=== PATIENT | female | born 1940 | race Caucasian/White ===

== ENCOUNTER 2019-03-26 11:38 | Inpatient (IN) | payer MEDICARE ==
[2019-03-26] MEDS ORDERED: Sodium Chloride 0.9% 10 ML Syringe FLUSH PRN (12:05)
[2019-03-26] MEDS ORDERED: Diltiazem 25 MG/5 ML SDV IVPUSH ONE (12:06)
[2019-03-26] MEDS ORDERED: Sodium Chloride 0.9% 1,000 ML IV SCH ×2 (12:15→15:24)
--- NOTE | 2019-03-26 12:38 | EDM.PDOC ---
ED HPI GENERAL MEDICAL PROBLEM - General Chief Complaint: Cardiovascular Problem Stated Complaint: NUMBNESS RIGHT HAND VIA NORTH Time Seen by Provider: 03/26/19 12:10 Source of Information: Reports: EMS History Limitations: Reports: Language Barrier, Other. Denies: No Limitations - History of Present Illness INITIAL COMMENTS - FREE TEXT/NARRATIVE: Alert very pleasant 78-year-old female who presents via EMS this morning due to abrupt onset of right arm numbness and tingling the patient denies weakness. Patient's nose with times a day of which is occurred she was getting ready to go to [facility]. 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 Her daughter was called by EMS regarding her ER visit. Patient states that she had a resolution of her right arm numbness and tingling at the time of ER presentation. Patient's has limited history due to language and cultural barriers patient is able to speak but it's very forced. Patient states she had a stroke in 2011 or unsure of residual deficits. Patient has no history of atrial fibrillation in our medical record system and patient did not say she had a history of atrial fibrillation. Upon further questioning patient states she does have a history of an irregular heartbeat which she's had for quite some time. Patient is supposed to be on metoprolol 50 mg for rate control and hypertension. Patient discontinue taking her Toprol in the hopes that it TENT would improve and control her blood pressure and heart rate. Patient does not recall how long ago she stopped taking metoprolol. Patient continues to use her lisinopril/chlorothiazide for blood pressure control. Patient denies any chest pain, shortness of breath URI symptoms. She denies any urinary symptoms do not know if she's had a history of urinary tract infections or pneumonia in the past. Patient is anxious about getting her routine care completed including mammogram, Pneumovax vaccination and other routine care drooling be done on outpatient basis. 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 - Related Data Allergies Allergy/AdvReac Type Severity Reaction Status Date / Time No Known Allergies Allergy Verified 03/26/19 11:52 Home Meds: Home Meds Hydrochlorothiazide/Lisinopril [Lisinopril-HCTZ 20-25 MG] 1 tab PO DAILY [History] Metoprolol Succinate 50 mg PO DAILY 03/26/19 [History] Past Medical History HEENT History: Reports: Hard of Hearing, Impaired Vision Other HEENT History: hard of hearing Cardiovascular History: Reports: Hypertension Other Cardiovascular History: hypotension Other Respiratory History: SOB with humidity 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 5 ribs broken Neurological History: Reports: CVA - Past Surgical History Cardiovascular Surgical History: Reports: None - History Comment History Comment: Her daughter was called by nursing staff: patient is noncompliant with medical treatments and follow-up care. Daughter states known history of A. fib and hypertension. Daughter believes the patient was very concerned today, as seeking care and calling ambulance is not typical behavior. Daughter believes patient will be more open to medical care and treatment. Social & Family History - Family History Family Medical History: Noncontributory Other Family History: Limited due to language and culture barriers - Tobacco Use Smoking Status *Q: Never Smoker - Caffeine Use Caffeine Use: Reports: Coffee - Recreational Drug Use Recreational Drug Use: No - Living Situation & Occupation Living situation: Reports: Single Occupation: Unemployed Social History Comment: Living in home alone with dog ED ROS GENERAL - Review of Systems Review Of Systems: ROS reveals no pertinent complaints other than HPI. Free Text/Narrative/Comment: Limited due to lagnuage and cultural barriers ED EXAM, GENERAL - Physical Exam Exam: See Below Exam Limited By: Language Barrier General Appearance: Alert, Anxious, Thin. No: Lethargic, Obtunded, Mild Distress Eye Exam: Bilateral Eye: Other (Normal EOM and visual tracking) Throat/Mouth: Normal Inspection, Normal Lips, Normal Teeth, Normal Gums, Normal Oropharynx, Normal Voice, No Airway Compromise Head: No: Facial Swelling Respiratory/Chest: No Respiratory Distress, Lungs Clear, Normal Breath Sounds, No Accessory Muscle Use, Chest Non-Tender. No: Respiratory Distress, Crackles, Wheezing Cardiovascular: Normal Peripheral Pulses, No Edema, No JVD, Tachycardia, Irregularly Irregular GI/Abdominal: Normal Bowel Sounds, Soft, Non-Tender, No Organomegaly (Female) Exam: Deferred Rectal (Female) Exam: Deferred Extremities: Normal Inspection, Normal Range of Motion, No Pedal Edema, Normal Capillary Refill. No: Joint Swelling, Leg Pain Neurological: Alert, CN II-XII Intact, Normal Cognition Psychiatric: Normal Mood, Other (very rushed forced speach) Skin Exam: Warm, Dry Lymphatic: No Adenopathy EKG INTERPRETATION EKG Date: 03/26/19 Time: 12:15 Rhythm: A-Fib Rate (Beats/Min): 127 P-Wave: Variable QT: Prolonged Comparison: NA - No Prior EKG EKG Interpretation Comments: A fib mónica RVR HR 127 Course - Vital Signs Last Recorded V/S: Last Vital Signs Temp 37 C 03/26/19 11:50 Pulse 145 H 03/26/19 11:50 Resp 15 03/26/19 12:24 BP 171/87 H 03/26/19 12:24 Pulse Ox 96 03/26/19 12:24 - Orders/Labs/Meds Orders: Active Orders 24 hr Category Date Time Status Cardiac Monitoring [RC] .As Directed Care 03/26/19 12:16 Active EKG Documentation Completion [RC] ASDIRECTED Care 03/26/19 12:06 Active Peripheral IV Care [RC] . DIRECTED Care 03/26/19 12:06 Active Diltiazem 125 mg Med 03/26/19 12:15 Active Dextrose 5% in Water 100 ml IV TITRATE Sodium Chloride 0.9% [Normal Saline] 1,000 ml Med 03/26/19 12:15 Active IV ASDIRECTED Sodium Chloride 0.9% [Saline Flush] Med 03/26/19 12:05 Active 10 ml FLUSH ASDIRECTED PRN Peripheral IV Insertion Adult [OM.PC] Stat Oth 03/26/19 12:05 Ordered EKG 12 Lead [EK] Stat Ther 03/26/19 12:05 Ordered Medication Orders Diltiazem HCl 125 mg/ Dextrose (/Water) 125 mls @ 5 mls/hr IV TITRATE MELANIE; Protocol Last Admin: 03/26/19 13:28 Dose: 5 mg/hr, 5 mls/hr Sodium Chloride (Normal Saline) 1,000 mls @ 500 mls/hr IV ASDIRECTED MELANIE Last Admin: 03/26/19 12:16 Dose: 500 mls/hr Sodium Chloride (Saline Flush) 10 ml FLUSH ASDIRECTED PRN PRN Reason: Keep Vein Open Last Admin: 03/26/19 12:23 Dose: 10 ml Labs: Laboratory Tests 03/26/19 03/26/19 03/26/19 Range/Units 12:19 12:19 12:48 WBC 9.8 (4.5-11.0) K/uL RBC 4.45 (3.30-5.50) M/uL Hgb 12.3 (12.0-15.0) g/dL Hct 38.3 (36.0-48.0) % MCV 86 (80-98) fL MCH 28 (27-31) pg MCHC 32 (32-36) % Plt Count 214 (150-400) K/uL Neut % (Auto) 76 H (36-66) % Lymph % (Auto) 16 L (24-44) % [place] % (Auto) 7 H (2-6) % Eos % (Auto) 1 L (2-4) % Baso % (Auto) 0 (0-1) % Sodium 140 (140-148) mmol/L Potassium 3.7 (3.6-5.2) mmol/L Chloride 102 (100-108) mmol/L Carbon Dioxide 28 (21-32) mmol/L Anion Gap 10.0 (5.0-14.0) mmol/L BUN 20 H (7-18) mg/dL Creatinine 1.6 H (0.6-1.0) mg/dL Est Cr Clr Drug Dosing 24.74 mL/min Estimated GFR (MDRD) 31 L (>60) Glucose 109 H (74-106) mg/dL Calcium 9.4 (8.5-10.1) mg/dL Magnesium 2.0 (1.8-2.4) mg/dL Total Bilirubin 0.5 D (0.2-1.0) mg/dL AST 22 (15-37) U/L ALT 17 (12-78) U/L Alkaline Phosphatase 85 (46-116) U/L Troponin I 0.081 H* (0.000-0.056) ng/mL NT-Pro-B Natriuret Pep 4323 H (5-450) pg/mL Total Protein 7.8 (6.4-8.2) g/dL Albumin 3.2 L (3.4-5.0) g/dL Globulin 4.6 H (2.3-3.5) g/dL Albumin/Globulin Ratio 0.7 L (1.2-2.2) Urine Color Yellow Urine Appearance Clear Urine pH 6.0 (4.5-8.0) Ur Specific [place] 1.010 (1.008-1.030) Urine Protein Negative (NEGATIVE) mg/dL Urine Glucose (UA) Normal (NEGATIVE) mg/dL Urine Ketones Negative (NEGATIVE) mg/dL Urine Occult Blood Negative (NEGATIVE) Urine Nitrite Negative (NEGATIVE) Urine Bilirubin Negative (NEGATIVE) Urine Urobilinogen Normal (NORMAL) mg/dL Ur Leukocyte Esterase Moderate (NEGATIVE) Urine RBC Not seen (0-5) Urine WBC 5-10 H (0-5) Ur Epithelial Cells Moderate Amorphous Sediment Not seen Urine Bacteria Not seen Urine Mucus Few Meds: Medications Generic Name Dose Route Start Last Admin Trade Name Freq PRN Reason Stop Dose Admin Diltiazem HCl 125 mg/ Dextrose 125 mls @ 5 mls/hr 03/26/19 12:15 03/26/19 13: 28 /Water IV 5 mg/hr TITRATE MELANIE 5 mls/hr Administration Protocol 5 MG/HR Sodium Chloride 1,000 mls @ 500 mls/hr 03/26/19 12:15 03/26/19 12:16 Normal Saline IV 500 mls/hr ASDIRECTED MELANIE Administration Sodium Chloride 10 ml 03/26/19 12:05 03/26/19 12:23 Saline Flush FLUSH 10 ml ASDIRECTED PRN Administration Keep Vein Open Discontinued Medications Generic Name Dose Route Start Last Admin Trade Name Freq PRN Reason Stop Dose Admin Diltiazem HCl 20 mg 03/26/19 12:06 03/26/19 12:14 Diltiazem IVPUSH 03/26/19 12:07 20 mg ONETIME ONE Administration - Re-Assessments/Exams Free Text/Narrative Re-Assessment/Exam: 03/26/19 13:04 CXR PA/LAT Reviewed: No acute infiltrate, fluid overload or density noted. Worsening cardiomegaly. COMPARISON: May 2016: Cardiomegaly noted but appears worse. Laboratory studies reviewed: Bump in Trop noted likely due to heart strain with long standing poor control afib (due to noncompliance with treatments). BNP elevated no comparison available again likely due to heart strain with long standing poor control a fib (due to noncompliance with treatments). Discussed admission with patient and daughter whom are agreeable. HR improved to 70/80s after Cardizem bolus, drip on hold. BP improved. Patient is fairly asymptomatic. Patient will be on a monitor pending admission or transfer for uncontrolled A. fib with RVR with bump in troponin and elevated BNP unable to compare to baseline. No signs of infection noted on urine or chest x-ray to explain uncontrolled A. fib. Patient has a history of noncompliance with treatment and medications. Patient seems more amenable to treatment options with the known risk of A. fib causing a stroke which he does not want another store. Patient does not appear to be on an anticoagulants. Patient's does take aspirin. Unsure if patient's benefit versus risk would be amenable to a note for warfarin due to noncompliance. 03/26/19 13:07 Free Text/Narrative Re-Assessment/Exam: Daughter is available at bedside. After the daughter regarding laboratory studies, chest x-ray, EKG and plan for admission. Nursing staff spoke with the inpatient nursing staff regarding bed availability. There is a bed available for this patient to be admitted to improve compliance offer treatment and set up outpatient care. I will speak to the hospitalist service regarding 03/26/19 13:27 Departure - Departure Time of Disposition: 13:37 (Per Dr Lopes) Disposition: Refer to Observation Condition: Fair Clinical Impression: Hypertensive heart disease, Uncontrolled hypertension, Atrial fibrillation with RVR Referrals: PCP,None [Primary Care Provider] - Forms: ED Department Discharge - Problem List & Annotations (1) Uncontrolled hypertension SNOMED Code(s): 99194244, 90779305 Code(s): I10 - ESSENTIAL (PRIMARY) HYPERTENSION Status: Acute Priority: Medium Current Visit: Yes (2) Atrial fibrillation with RVR SNOMED Code(s): 086526909856336 Code(s): I48.91 - UNSPECIFIED ATRIAL FIBRILLATION Status: Acute Current Visit: Yes (3) A-fib SNOMED Code(s): 06906002 Code(s): I48.91 - UNSPECIFIED ATRIAL FIBRILLATION Status: Chronic Current Visit: Yes Qualifiers: Atrial fibrillation type: unspecified Qualified Code(s): I48.91 - Unspecified atrial fibrillation (4) TIA (transient ischemic attack) SNOMED Code(s): 165659032 Code(s): G45.9 - TRANSIENT CEREBRAL ISCHEMIC ATTACK, UNSPECIFIED Status: Acute Current Visit: Yes Annotation/Comment:: Probable right arm sensory loss 9am to 12 noon today. H/O CVA - Problem List Review Problem List Initiated/Reviewed/Updated: Yes - My Orders Last 24 Hours: My Active Orders 03/26/19 12:05 Sodium Chloride 0.9% [Saline Flush] 10 ml FLUSH ASDIRECTED PRN Peripheral IV Insertion Adult [OM.PC] Stat EKG 12 Lead [EK] Stat 03/26/19 12:06 EKG Documentation Completion [RC] ASDIRECTED Peripheral IV Care [RC] . DIRECTED 03/26/19 12:15 Diltiazem 125 mg Dextrose 5% in Water 100 ml IV TITRATE Sodium Chloride 0.9% [Normal Saline] 1,000 ml IV ASDIRECTED 03/26/19 12:16 Cardiac Monitoring [RC] .As Directed - Assessment/Plan Last 24 Hours: My Active Orders 03/26/19 12:05 Sodium Chloride 0.9% [Saline Flush] 10 ml FLUSH ASDIRECTED PRN Peripheral IV Insertion Adult [OM.PC] Stat EKG 12 Lead [EK] Stat 03/26/19 12:06 EKG Documentation Completion [RC] ASDIRECTED Peripheral IV Care [RC] . DIRECTED 03/26/19 12:15 Diltiazem 125 mg Dextrose 5% in Water 100 ml IV TITRATE Sodium Chloride 0.9% [Normal Saline] 1,000 ml IV ASDIRECTED 03/26/19 12:16 Cardiac Monitoring [RC] .As Directed
--- NOTE | 2019-03-26 13:14 | CRLCR ---
INDICATION: Atrial fibrillation. Concern for CVA. COMPARISON: 06/04/2016 portable chest radiograph. FINDINGS/IMPRESSION: Mild cardiomegaly. Upper normal pulmonary vasculature. No focal lung consolidation or pleural effusions. No acute osseous findings Dictated by Devonte Dalton MD @ 03/26/2019 1:13:27 PM Dictated by: Devonte Dalton MD @ 03/26/2019 13:13:47 (Electronically Signed)
--- NOTE | 2019-03-26 14:42 | PCM.HP ---
H&P History of Present Illness - General Date of Service: 03/26/19 Admit Problem/Dx: Admission Diagnosis/Problem Admission Diagnosis/Problem Atrial fibrillation with rapid ventricular response Source of Information: Patient, Provider History Limitations: Reports: No Limitations - History of Present Illness Initial Comments - Free Text/Narative: CC: My arm felt frozen Demetria presented to the emergency room today with right arm numbness and tingling. She reports onset of initially tingling followed by numbness and the sensation that her arm was wet or frozen. There was no significant change in activity that preceded onset of the symptoms. Symptoms completely resolved within 3 hours. She has had mild episodes like this in the past, usually while driving. She has never had any symptoms that have lasted quite this long or been quite this intense. She did not complain of a headache, dizziness, blurry vision, no weakness, difficulty with speech or weakness in either leg. She does not currently report palpitations but reports several months ago she had episodes of weakness/feeling frozen. She has not had an chest pain. She does not feel short of breath and does not get short of breath with activity. She has not had any fevers. Workup in the emergency room revealed atrial fibrillation with rapid ventricular response. Heart rate has responded to diltiazem but she remains in atrial fibrillation. Blood pressure significantly elevated with systolic pressures around 200. Troponin is very mildly elevated at 0.08. She'll be admitted for management of atrial fibrillation and a blood pressure control. 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 5 ribs broken Neurological History: Reports: CVA - Past Surgical History Cardiovascular Surgical History: Reports: None - History Comment History Comment: Her daughter was called by nursing staff: patient is noncompliant with medical treatments and follow-up care. Daughter states known history of A. fib and hypertension. Daughter believes the patient was very concerned today, as seeking care and calling ambulance is not typical behavior. Daughter believes patient will be more open to medical care and treatment. Social & Family History - Family History Family Medical History: Noncontributory Other Family History: Limited due to language and culture barriers - Tobacco Use Smoking Status *Q: Never Smoker - Caffeine Use Caffeine Use: Reports: Coffee - Alcohol Use Alcohol Use History: No - Recreational Drug Use Recreational Drug Use: No - Living Situation & Occupation Living situation: Reports: Single Occupation: Unemployed H&P Review of Systems - Review of Systems: Review Of Systems: See Below Free Text/Narrative: A complete 12 point review of systems was obtained. Pertinent positives and negatives are noted in the history of present illness. All other systems were reviewed and were negative except as noted. Exam - Exam Exam: See Below - Vital Signs Vital Signs: Last Vital Signs Temp 37 C 03/26/19 11:50 Pulse 103 H 03/26/19 13:46 Resp 15 03/26/19 13:46 BP 175/107 H 03/26/19 13:46 Pulse Ox 94 L 03/26/19 13:46 Weight: 58.967 kg - Exam Quality Assessment: No: Supplemental Oxygen General: Alert, Oriented, Cooperative. No: Mild Distress HEENT: Conjunctiva Clear, Mucosa Moist & [place]. No: Scleral Icterus Neck: Supple, Trachea Midline. No: Lymphadenopathy Lungs: Clear to Auscultation, Normal Respiratory Effort Cardiovascular: Irregular Rhythm, Tachycardia. No: Systolic Murmur GI/Abdominal Exam: Normal Bowel Sounds, Soft, Non-Tender, No Distention Back Exam: Normal Inspection, Full Range of Motion Extremities: No Pedal Edema. No: Increased Warmth Peripheral Pulses: 2+: Dorsalis Pedis (L), Dorsalis Pedis (R) Skin: Warm, Dry Neuro Extensive - Mental Status: Alert, Oriented x3, Nl Response to Commands Neuro Extensive - Motor, Sensory, Reflexes: No: Dysarthria, Abnormal Motor, Tremor Psychiatric: Alert, Normal Affect - Patient Data Lab Results Last 24 hrs: Laboratory Results - last 24 hr 03/26/19 03/26/19 03/26/19 Range/Units 12:19 12:19 12:48 WBC 9.8 (4.5-11.0) K/uL RBC 4.45 (3.30-5.50) M/uL Hgb 12.3 (12.0-15.0) g/dL Hct 38.3 (36.0-48.0) % MCV 86 (80-98) fL MCH 28 (27-31) pg MCHC 32 (32-36) % Plt Count 214 (150-400) K/uL Neut % (Auto) 76 H (36-66) % Lymph % (Auto) 16 L (24-44) % [place] % (Auto) 7 H (2-6) % Eos % (Auto) 1 L (2-4) % Baso % (Auto) 0 (0-1) % Sodium 140 (140-148) mmol/L Potassium 3.7 (3.6-5.2) mmol/L Chloride 102 (100-108) mmol/L Carbon Dioxide 28 (21-32) mmol/L Anion Gap 10.0 (5.0-14.0) mmol/L BUN 20 H (7-18) mg/dL Creatinine 1.6 H (0.6-1.0) mg/dL Est Cr Clr Drug Dosing 24.74 mL/min Estimated GFR (MDRD) 31 L (>60) Glucose 109 H (74-106) mg/dL Calcium 9.4 (8.5-10.1) mg/dL Magnesium 2.0 (1.8-2.4) mg/dL Total Bilirubin 0.5 D (0.2-1.0) mg/dL AST 22 (15-37) U/L ALT 17 (12-78) U/L Alkaline Phosphatase 85 (46-116) U/L Troponin I 0.081 H* (0.000-0.056) ng/mL NT-Pro-B Natriuret Pep 4323 H (5-450) pg/mL Total Protein 7.8 (6.4-8.2) g/dL Albumin 3.2 L (3.4-5.0) g/dL Globulin 4.6 H (2.3-3.5) g/dL Albumin/Globulin Ratio 0.7 L (1.2-2.2) Urine Color Yellow Urine Appearance Clear Urine pH 6.0 (4.5-8.0) Ur Specific [place] 1.010 (1.008-1.030) Urine Protein Negative (NEGATIVE) mg/dL Urine Glucose (UA) Normal (NEGATIVE) mg/dL Urine Ketones Negative (NEGATIVE) mg/dL Urine Occult Blood Negative (NEGATIVE) Urine Nitrite Negative (NEGATIVE) Urine Bilirubin Negative (NEGATIVE) Urine Urobilinogen Normal (NORMAL) mg/dL Ur Leukocyte Esterase Moderate (NEGATIVE) Urine RBC Not seen (0-5) Urine WBC 5-10 H (0-5) Ur Epithelial Cells Moderate Amorphous Sediment Not seen Urine Bacteria Not seen Urine Mucus Few Result Diagrams: 03/26/19 12:19 03/26/19 12:19 Imaging Impressions Last 24 hrs: CXR - images personally reviewed - there is mild cardiomegally but not mass, effusion or infiltrate. mild vasc congestion EKG INTERPRETATION EKG Date: 03/26/19 Rhythm: A-Fib Rate (Beats/Min): 127 [place]: Normal P-Wave: Variable QRS: Normal ST-T: Depressed (lateral) QT: Normal *Q Meaningful Use (ADM) - VTE Risk Assess *Q Each Risk Factor Represents 1 Point: None Total Score 1 Point Risk Factors: 0 Each Risk Factor Represents 2 Points: None Total Score 2 Point Risk Factors: 0 Each Risk Factor Represents 3 Points: Age 75 Years or Greater Total Score 3 Point Risk Factors: 3 Each Risk Factor Represents 5 Points: None Total Score 5 Point Risk Factors: 0 Venous Thromboembolism Risk Factor Score *Q: 3 - Problem List (1) Atrial fibrillation with RVR SNOMED Code(s): 757702876669932 ICD Code: I48.91 - UNSPECIFIED ATRIAL FIBRILLATION Status: Acute Current Visit: Yes (2) Uncontrolled hypertension SNOMED Code(s): 55872132, 86158177 ICD Code: I10 - ESSENTIAL (PRIMARY) HYPERTENSION Status: Acute Priority: Medium Current Visit: Yes (3) Elevated troponin SNOMED Code(s): 056409699, 141781863, 376498165 ICD Code: R74.8 - ABNORMAL LEVELS OF OTHER SERUM ENZYMES Status: Acute Current Visit: Yes (4) TIA (transient ischemic attack) SNOMED Code(s): 506641281 ICD Code: G45.9 - TRANSIENT CEREBRAL ISCHEMIC ATTACK, UNSPECIFIED Status: Acute Current Visit: Yes Problem Details: Probable right arm sensory loss 9am to 12 noon today Problem List Initiated/Reviewed/Updated: Yes Orders Last 24hrs: Active Orders 24 hr Category Date Time Status Patient Status Manage Transfer [TRANSFER] Routine ADT 03/26/19 14:29 Ordered Cardiac Monitoring [RC] .As Directed Care 03/26/19 12:16 Active EKG Documentation Completion [RC] ASDIRECTED Care 03/26/19 12:06 Active Peripheral IV Care [RC] . DIRECTED Care 03/26/19 12:06 Active Diltiazem 125 mg Med 03/26/19 12:15 Active Dextrose 5% in Water 100 ml IV TITRATE Sodium Chloride 0.9% [Normal Saline] 1,000 ml Med 03/26/19 12:15 Active IV ASDIRECTED Sodium Chloride 0.9% [Saline Flush] Med 03/26/19 12:05 Active 10 ml FLUSH ASDIRECTED PRN Peripheral IV Insertion Adult [OM.PC] Stat Oth 03/26/19 12:05 Ordered Resuscitation Status Routine Resus Stat 03/26/19 14:31 Ordered EKG 12 Lead [EK] Stat Ther 03/26/19 12:05 Ordered Medication Orders Diltiazem HCl 125 mg/ Dextrose (/Water) 125 mls @ 5 mls/hr IV TITRATE MELANIE; Protocol Last Admin: 03/26/19 13:28 Dose: 5 mg/hr, 5 mls/hr Sodium Chloride (Normal Saline) 1,000 mls @ 500 mls/hr IV ASDIRECTED MELANIE Last Admin: 03/26/19 12:16 Dose: 500 mls/hr Sodium Chloride (Saline Flush) 10 ml FLUSH ASDIRECTED PRN PRN Reason: Keep Vein Open Last Admin: 03/26/19 12:23 Dose: 10 ml Assessment/Plan Comment:: ASSESSMENT AND PLAN - Atrial fibrillation with rapid ventricular response - patient reports long- standing history of "irregular heart beat". She does not have symptoms of tachycardia, palpitations or chest pain. Duration of rhythm is unclear but likely is chronic. Her [id number] score is elevated at 4. She is hesitant to start systemic anticoagulation and I believe would be a very unreliable patient based on initial conversations. -continue diltiazem infusion, titrate to heart rate around 80 -Aspirin 81 mg daily -Cardiac monitoring -Discuss systemic anticoagulation with patient again tomorrow -Continue beta beto Accelerated hypertension - BP significantly elevated, she reports suboptimal compliance with medications. -Continue lisinopril -Hold hydrochlorothiazide -Continue metoprolol -Diltiazem as above Possible TIA - sensory deficits that prompted a trip to the emergency room could be related to transient ischemic attack though the patient does report history of similar though less intense. Nerve irritation in the shoulder could also be considered. No symptoms at this time and neurologic examination is normal. -Management as above -Lipid panel in the morning -Head CT and/or MRI if return of symptoms Elevated troponin - very mild elevation, no symptoms and EKG does not show significant ischemia. Likely related to demand ischemia in the setting of significant tachycardia and possible hypertensive heart disease. Maintenance issues - - DVT prophylaxis - enoxaparin - GI prophylaxis - not indicated - Nutrition - regular diet - [place] catheter - not indicated CODE STATUS - DNR/DNI Admission justification - This patient will be admitted for inpatient services and is medically appropriate meeting medical necessity for inpatient admission as outlined in my documentation. I reasonably expect the patient will require inpatient services that span a period time over 2 midnights. I reasonably expect this patient to be discharged or transferred within 96 hours after admission to the [facility]. Disposition - I would anticipate discharge to home after the hospital stay Primary care physician - none Perry Lopes M.D.
[2019-03-26] MEDS ORDERED: Acetaminophen 325 MG Tab PO PRN (15:24)
[2019-03-26] MEDS ORDERED: Ondansetron 4 MG Tab.DIS PO PRN (15:24)
[2019-03-26] MEDS: Lisinopril 20 MG Tab PO SCH (16:15)
[2019-03-26] MEDS: Aspirin 81 MG Tab.EC PO SCH (16:15)
[2019-03-26] MEDS: Enoxaparin 40 MG/0.4 ML Syringe SUBCUT SCH (17:36)
[2019-03-27] MEDS: Aspirin 81 MG Tab.EC PO SCH (09:30)
[2019-03-27] MEDS: Metoprolol Succinate 50 MG Tab.ER PO SCH (09:30)
[2019-03-27] MEDS: Lisinopril 20 MG Tab PO SCH (09:31)
--- NOTE | 2019-03-27 10:37 | PCM.PN ---
- General Info Date of Service: 03/27/19 Subjective Update: There were no acute events overnight. She has achieved excellent rate control with the diltiazem. She has not had recurrence of the right arm numbness or tingling. No complaints of chest pain. Shortness of breath is at baseline or even slightly improved. Appetite has been good. Blood pressures trending down. Functional Status: Reports: Pain Controlled, Tolerating Diet - Review of Systems General: Denies: Fever Cardiovascular: Denies: Chest Pain Neurological: Denies: Numbness, Tingling - Patient Data Vitals - Most Recent: Last Vital Signs Temp 36.3 C 03/27/19 07:00 Pulse 67 03/27/19 10:00 Resp 21 H 03/27/19 10:00 BP 120/98 H 03/27/19 10:00 Pulse Ox 97 03/27/19 08:00 Weight - Most Recent: 58.967 kg I&O - Last 24 Hours: Intake & Output 03/26/19 03/27/19 03/27/19 22:59 06:59 14:59 Intake Total 1466 202 Output Total 250 450 Balance 1216 -248 Lab Results Last 24 Hours: Laboratory Results - last 24 hr 03/26/19 03/26/19 03/26/19 Range/Units 12:19 12:19 12:48 WBC 9.8 (4.5-11.0) K/uL RBC 4.45 (3.30-5.50) M/uL Hgb 12.3 (12.0-15.0) g/dL Hct 38.3 (36.0-48.0) % MCV 86 (80-98) fL MCH 28 (27-31) pg MCHC 32 (32-36) % Plt Count 214 (150-400) K/uL Neut % (Auto) 76 H (36-66) % Lymph % (Auto) 16 L (24-44) % [place] % (Auto) 7 H (2-6) % Eos % (Auto) 1 L (2-4) % Baso % (Auto) 0 (0-1) % Sodium 140 (140-148) mmol/L Potassium 3.7 (3.6-5.2) mmol/L Chloride 102 (100-108) mmol/L Carbon Dioxide 28 (21-32) mmol/L Anion Gap 10.0 (5.0-14.0) mmol/L BUN 20 H (7-18) mg/dL Creatinine 1.6 H (0.6-1.0) mg/dL Est Cr Clr Drug Dosing 24.74 mL/min Estimated GFR (MDRD) 31 L (>60) Glucose 109 H (74-106) mg/dL Calcium 9.4 (8.5-10.1) mg/dL Magnesium 2.0 (1.8-2.4) mg/dL Total Bilirubin 0.5 D (0.2-1.0) mg/dL AST 22 (15-37) U/L ALT 17 (12-78) U/L Alkaline Phosphatase 85 (46-116) U/L Troponin I 0.081 H* (0.000-0.056) ng/mL NT-Pro-B Natriuret Pep 4323 H (5-450) pg/mL Total Protein 7.8 (6.4-8.2) g/dL Albumin 3.2 L (3.4-5.0) g/dL Globulin 4.6 H (2.3-3.5) g/dL Albumin/Globulin Ratio 0.7 L (1.2-2.2) Triglycerides (15-150) mg/dL Cholesterol (0-200) mg/dL LDL Cholesterol Direct (0-100) mg/dL HDL Cholesterol (40-60) mg/dL TSH, Ultra Sensitive (0.358-3.740) uIU/mL Urine Color Yellow Urine Appearance Clear Urine pH 6.0 (4.5-8.0) Ur Specific [place] 1.010 (1.008-1.030) Urine Protein Negative (NEGATIVE) mg/dL Urine Glucose (UA) Normal (NEGATIVE) mg/dL Urine Ketones Negative (NEGATIVE) mg/dL Urine Occult Blood Negative (NEGATIVE) Urine Nitrite Negative (NEGATIVE) Urine Bilirubin Negative (NEGATIVE) Urine Urobilinogen Normal (NORMAL) mg/dL Ur Leukocyte Esterase Moderate (NEGATIVE) Urine RBC Not seen (0-5) Urine WBC 5-10 H (0-5) Ur Epithelial Cells Moderate Amorphous Sediment Not seen Urine Bacteria Not seen Urine Mucus Few 03/26/19 03/27/19 03/27/19 Range/Units 18:45 05:44 05:44 WBC 8.6 (4.5-11.0) K/uL RBC 4.04 (3.30-5.50) M/uL Hgb 11.0 L (12.0-15.0) g/dL Hct 35.0 L (36.0-48.0) % MCV 87 (80-98) fL MCH 27 (27-31) pg MCHC 31 L (32-36) % Plt Count 187 (150-400) K/uL Neut % (Auto) (36-66) % Lymph % (Auto) (24-44) % [place] % (Auto) (2-6) % Eos % (Auto) (2-4) % Baso % (Auto) (0-1) % Sodium 141 (140-148) mmol/L Potassium 3.7 (3.6-5.2) mmol/L Chloride 105 (100-108) mmol/L Carbon Dioxide 29 (21-32) mmol/L Anion Gap 6.9 (5.0-14.0) mmol/L BUN 16 (7-18) mg/dL Creatinine 1.3 H (0.6-1.0) mg/dL Est Cr Clr Drug Dosing 30.44 mL/min Estimated GFR (MDRD) 40 L (>60) Glucose 93 (74-106) mg/dL Calcium 9.2 (8.5-10.1) mg/dL Magnesium (1.8-2.4) mg/dL Total Bilirubin (0.2-1.0) mg/dL AST (15-37) U/L ALT (12-78) U/L Alkaline Phosphatase (46-116) U/L Troponin I 0.099 H* 0.094 H* (0.000-0.056) ng/mL NT-Pro-B Natriuret Pep (5-450) pg/mL Total Protein (6.4-8.2) g/dL Albumin (3.4-5.0) g/dL Globulin (2.3-3.5) g/dL Albumin/Globulin Ratio (1.2-2.2) Triglycerides 72 (15-150) mg/dL Cholesterol 126 (0-200) mg/dL LDL Cholesterol Direct 76 (0-100) mg/dL HDL Cholesterol 42 (40-60) mg/dL TSH, Ultra Sensitive 2.935 (0.358-3.740) uIU/mL Urine Color Urine Appearance Urine pH (4.5-8.0) Ur Specific [place] (1.008-1.030) Urine Protein (NEGATIVE) mg/dL Urine Glucose (UA) (NEGATIVE) mg/dL Urine Ketones (NEGATIVE) mg/dL Urine Occult Blood (NEGATIVE) Urine Nitrite (NEGATIVE) Urine Bilirubin (NEGATIVE) Urine Urobilinogen (NORMAL) mg/dL Ur Leukocyte Esterase (NEGATIVE) Urine RBC (0-5) Urine WBC (0-5) Ur Epithelial Cells Amorphous Sediment Urine Bacteria Urine Mucus Med Orders - Current: Current Medications Acetaminophen (Tylenol) 650 mg PO Q4H PRN PRN Reason: Pain (Mild 1-3)/fever Aspirin (Halfprin) 81 mg PO DAILY [facility] Last Admin: 03/27/19 09:30 Dose: 81 mg Diltiazem HCl (Cardizem) 30 mg PO Q6H MELANIE Enoxaparin Sodium (Lovenox) 40 mg SUBCUT Q24H [facility] Last Admin: 03/26/19 17:36 Dose: 40 mg Diltiazem HCl 125 mg/ Dextrose (/Water) 125 mls @ 5 mls/hr IV TITRATE [facility]; Protocol Stop: 03/27/19 11:00 Last Admin: 03/27/19 02:06 Dose: 5 mg/hr, 5 mls/hr Lisinopril (Prinivil) 20 mg PO DAILY [facility] Last Admin: 03/27/19 09:31 Dose: 20 mg Metoprolol Succinate (Toprol Xl) 50 mg PO DAILY [facility] Last Admin: 03/27/19 09:30 Dose: 50 mg Ondansetron HCl (Zofran Odt) 4 mg PO Q6H PRN PRN Reason: Nausea able to take PO Senna/Docusate Sodium (Senna Plus) 1 tab PO BID PRN PRN Reason: Constipation Sodium Chloride (Saline Flush) 10 ml FLUSH ASDIRECTED PRN PRN Reason: Keep Vein Open Last Admin: 03/26/19 12:23 Dose: 10 ml Discontinued Medications Diltiazem HCl (Diltiazem) 20 mg IVPUSH ONETIME ONE Stop: 03/26/19 12:07 Last Admin: 03/26/19 12:14 Dose: 20 mg Sodium Chloride (Normal Saline) 1,000 mls @ 500 mls/hr IV ASDIRECTED [facility] Last Admin: 03/26/19 12:16 Dose: 500 mls/hr Sodium Chloride (Normal Saline) 1,000 mls @ 25 mls/hr IV ASDIRECTED [facility] - Exam Quality Assessment: No: Supplemental Oxygen General: Alert, Oriented, Cooperative, No Acute Distress Neck: Supple Lungs: Clear to Auscultation, Normal Respiratory Effort Cardiovascular: Regular Rate, Irregular Rhythm GI/Abdominal Exam: Soft, No Distention Extremities: No Pedal Edema. No: Increased Warmth Skin: Warm, Dry Psy/Mental Status: Alert, Normal Affect - Problem List & Annotations (1) Atrial fibrillation with RVR SNOMED Code(s): 219291716947832 Code(s): I48.91 - UNSPECIFIED ATRIAL FIBRILLATION Status: Acute Current Visit: Yes (2) Uncontrolled hypertension SNOMED Code(s): 13139800, 81543597 Code(s): I10 - ESSENTIAL (PRIMARY) HYPERTENSION Status: Acute Priority: Medium Current Visit: Yes (3) Elevated troponin SNOMED Code(s): 808383793, 457447614, 153959044 Code(s): R74.8 - ABNORMAL LEVELS OF OTHER SERUM ENZYMES Status: Acute Current Visit: Yes (4) TIA (transient ischemic attack) SNOMED Code(s): 758505970 Code(s): G45.9 - TRANSIENT CEREBRAL ISCHEMIC ATTACK, UNSPECIFIED Status: Acute Current Visit: Yes Annotation/Comment:: Probable right arm sensory loss 9am to 12 noon today - Problem List Review Problem List Initiated/Reviewed/Updated: Yes - My Orders Last 24 Hours: My Active Orders 03/26/19 14:31 Resuscitation Status Routine 03/26/19 15:24 Patient Status [ADT] Routine Cardiac Monitoring [RC] Q6H Intake and Output [RC] QSHIFT Notify Provider Vital Signs [RC] ASDIRECTED Up ad Yarelis [RC] ASDIRECTED VTE/DVT Education [RC] Per Unit Routine Vital Signs [RC] Q1H Acetaminophen [Tylenol] 650 mg PO Q4H PRN Docusate Sodium/Sennosides [Senna Plus] 1 tab PO BID PRN Ondansetron [Zofran ODT] 4 mg PO Q6H PRN Sodium Chloride 0.9% [Normal Saline] 1,000 ml IV ASDIRECTED 03/26/19 15:45 Lisinopril [Prinivil] 20 mg PO DAILY 03/26/19 16:00 Aspirin [Halfprin] 81 mg PO DAILY 03/26/19 18:00 Enoxaparin [Lovenox] 40 mg SUBCUT Q24H 03/26/19 Dinner Regular Diet [DIET] 03/27/19 09:00 Metoprolol Succinate [Toprol XL] 50 mg PO DAILY 03/27/19 10:00 Diltiazem IR [Cardizem] 30 mg PO Q6H 03/27/19 10:36 Potassium Chloride [Klor-Con M20] 40 meq PO ONETIME ONE 03/27/19 13:00 Warfarin [Coumadin] 5 mg PO DAILY@1300 03/28/19 05:00 BASIC METABOLIC PANEL,BMP [CHEM] Timed INR,PT,PROTHROMBIN TIME [COAG] Timed TROPONIN I [CHEM] Timed - Plan Plan:: ASSESSMENT AND PLAN - Atrial fibrillation with rapid ventricular response - Her [id number] score is elevated at 7 (9.6 %/year stroke risk). Excellent rate control with the diltiazem. Blood pressure has been steadily trending down. -Transition diltiazem to short acting version -Consider long-acting diltiazem tomorrow -Aspirin 81 mg daily -Initiate warfarin with low-dose enoxaparin while in the hospital -Cardiac monitoring -Continue beta beto Accelerated hypertension - BP significantly elevated at the time of admission but has been trending down. -Continue lisinopril -Hold hydrochlorothiazide -Continue metoprolol -Diltiazem as above Possible TIA - no recurrence of symptoms. Unclear if this was a TIA versus a upper back/shoulder nerve impingement issue. -Management as above -Lipid panel in the morning -Head CT and/or MRI if return of symptoms Elevated troponin - very mild elevation, no symptoms and EKG does not show significant ischemia. Likely related to demand ischemia and level has been trending down with heart rate and blood pressure control. Maintenance issues - - DVT prophylaxis - enoxaparin - GI prophylaxis - not indicated - Nutrition - regular diet Disposition - I would anticipate discharge to home after the hospital stay Perry Lopes M.D.
[2019-03-27] MEDS: Diltiazem IR 30 MG Tab PO SCH ×3 (10:38→21:00)
[2019-03-27] MEDS ORDERED: Potassium Chloride 20 MEQ Tab.ER PO ONE (11:00)
[2019-03-27] MEDS: Warfarin 5 MG Tab PO SCH (12:05)
[2019-03-27] MEDS: Enoxaparin 40 MG/0.4 ML Syringe SUBCUT SCH ×2 (17:10→17:12)
[2019-03-28] MEDS: Diltiazem IR 30 MG Tab PO SCH (04:08)
[2019-03-28] MEDS: Lisinopril 20 MG Tab PO SCH (08:15)
[2019-03-28] MEDS: Aspirin 81 MG Tab.EC PO SCH (08:15)
[2019-03-28] MEDS: Metoprolol Succinate 50 MG Tab.ER PO SCH (08:15)
[2019-03-28] MEDS ORDERED: Diltiazem 120 MG Cap.CD PO SCH (09:30)
[2019-03-28 10:31] VITALS: BP 160/60
[2019-03-28] MEDS: Warfarin 5 MG Tab PO SCH (10:34)
--- NOTE | 2019-03-28 10:49 | PCM.DCSUM1 ---
Discharge Summary - Hospital Course Brief History: 78-year-old female with history of hypertension, chronic atrial fibrillation and previous cerebrovascular accident who presented with right arm numbness. She was admitted for management of rapid atrial fibrillation and accelerated hypertension. Diagnosis: Stroke: No - Discharge Data Discharge Date: 03/28/19 Discharge Disposition: Home, Self-Care 01 Condition: Good - Discharge Diagnosis/Problem(s) (1) Atrial fibrillation with RVR SNOMED Code(s): 695770241659647 ICD Code: I48.91 - UNSPECIFIED ATRIAL FIBRILLATION Status: Acute (2) Uncontrolled hypertension SNOMED Code(s): 16225011, 25554807 ICD Code: I10 - ESSENTIAL (PRIMARY) HYPERTENSION Status: Acute Priority: Medium (3) Elevated troponin SNOMED Code(s): 689961700, 865519475, 979116121 ICD Code: R74.8 - ABNORMAL LEVELS OF OTHER SERUM ENZYMES Status: Acute (4) TIA (transient ischemic attack) SNOMED Code(s): 843132933 ICD Code: G45.9 - TRANSIENT CEREBRAL ISCHEMIC ATTACK, UNSPECIFIED Status: Suspected Problem Details: Probable right arm sensory loss 9am to 12 noon today - Patient Summary/Data Hospital Course: Yasir presented to the emergency room with right arm numbness and tingling. In the emergency room she was noted to be in atrial fibrillation with a rapid ventricular response and she had accelerated hypertension. Her right arm symptoms resolved upon arrival to the emergency room. Initially there was some concern for TIA with the right arm symptoms but I suspect it was more of a nerve irritation in the trapezius area as the patient has experienced similar but more mild symptoms when driving recently. Regarding the atrial fibrillation she received a bolus of diltiazem and then was started on a continuous infusion with improvement in her rate. This did also help her blood pressure but it remained elevated. Troponin was also mildly elevated. She was admitted to the intensive care unit for management of hypertension and rapid atrial fibrillation. The diltiazem drip was titrated and eventually stabilized at a 5 mg dose after initially somewhat higher rates. The beta beto and lisinopril were continued. Heart rate remained stable overnight following admission and her troponin level was trending down. Blood pressure slowly improved throughout the course of the hospital stay. By the day after admission her heart rate is in the 60s and 70s. She was transitioned from IV to oral diltiazem which she tolerated well. Blood pressure and heart rate remained stable with the oral medications. We reviewed her risk factors for stroke with atrial fibrillation and she had a score of 7 on the CHADSVASC scoring system. we reviewed potential options to help reduce stroke risk and eventually decided on warfarin. His medication was started during the hospital stay. She did receive enoxaparin DVT prophylaxis during the course of the hospital stay. By the morning of discharge her heart rate has remained stable with a short acting diltiazem and she has been transitioned to long-acting diltiazem. Her blood pressures have improved significantly but are not quite at goal range. Troponin level has nearly normalized. She has not had any chest pain. No complaints of shortness of breath. No recurrence of her right arm numbness or tingling. At this point I believe she is safe for hospital discharge and outpatient follow-up. Vital signs are all stable and symptomatically she is feeling well. We reviewed new medication information as well as our concerns about potential for stroke risk and the indication for warfarin with her and her daughter. She is interested in following up with the [facility]. She will need follow-up appointments on of this week to recheck heart rate as well as have her INR checked with the new warfarin initiation. - Patient Instructions Diet: Heart Healthy Diet Activity: As Tolerated Showering/Bathing: May Shower Notify Provider of: Fever, Increased Pain Other/Special Instructions: 1. You were in the hospital for management of accelerated hypertension, atrial fibrillation with rapid ventricular response and evaluation of right arm numbness. Your heart rate and blood pressure have been improving with medication adjustments. With regards to your atrial fibrillation, you have an elevated risk for stroke (nearly 10% per year risk without blood thinners) so I recommend that you take warfarin 5 mg daily. You will need a follow-up appointment with the [facility] as discussed below. This medication can help to reduce your risk of stroke significantly. The medication does need close monitoring however and you will need to follow-up with the [facility] regularly. It is important to remember that even if you feel good you need to take these medications every single day unless a doctor tells you to stop taking them. Below is a list of the medications you should start taking or continue taking and there indication for use: -- Metoprolol succinate - this is a medication that slows down your heart rate with atrial fibrillation and also lowers your blood pressure. You should continue to take this medication once daily. --Lisinopril - this is a medication that lowers your blood pressure. You should continue to take this medication once daily. --Diltiazem - this is a medication that slows down your heart rate with atrial fibrillation and also lowers your blood pressure. You should start taking this medication once a day. --Warfarin - this is a medication that helps to thin out your blood and reduce the risk of stroke with your elevated risk factors and atrial fibrillation. You should start taking this medication once per day. --Aspirin 81 mg - this medication helps to make platelets slippery and reduce the risk of stroke and heart attack. You should start taking this medication once per day. 2. Follow up with Pratibha hCurch on to establish care and follow up with the [facility] on 04/01 as well. This is where your Coumadin (warfarin) levels will be monitored and doses adjusted if needed. Someone will contact you tomorrow with appointment times. 3. Please seek medical attention if you develop fever >101 degrees, have severe shortness of breath, chest pain or stroke like symptoms (weakness on one side of your body, difficulty speaking or facial droop). - Discharge Plan *PRESCRIPTION DRUG MONITORING PROGRAM REVIEWED*: Not Applicable *COPY OF PRESCRIPTION DRUG MONITORING REPORT IN PATIENT OMARI: Not Applicable Prescriptions/Med Rec: Aspirin [Halfprin] 81 mg PO DAILY #100 tab.ec Diltiazem [Cardizem CD] 120 mg PO DAILY #30 cap.cd Warfarin [Coumadin] 5 mg PO DAILY #30 tablet Home Medications: Home Meds Metoprolol Succinate 50 mg PO DAILY 03/26/19 [History] Aspirin [Halfprin] 81 mg PO DAILY #100 tab.ec 03/28/19 [Rx] Diltiazem [Cardizem CD] 120 mg PO DAILY #30 cap.cd 03/28/19 [Rx] Lisinopril 20 mg PO DAILY 03/28/19 [History] Simvastatin 5 mg PO DAILY 03/28/19 [History] Warfarin [Coumadin] 5 mg PO DAILY #30 tablet 03/28/19 [Rx] Oxygen Therapy Mode: Room Air Patient Handouts: What You Need to Know About Warfarin, Atrial Fibrillation, Gjob-to-Ajpa Referrals: Pratibha Church MD [Ordering Only Provider] - 04/01/19 (establish care/f/u hospital stay 04/01. Needs coumadin clinic appt that day as well (new start)) - Discharge Summary/Plan Comment DC Time >30 min.: Yes (45 - extensive education and coordinating follow-up with new primary care) - Patient Data Vitals - Most Recent: Last Vital Signs Temp 37.1 C 03/28/19 08:00 Pulse 86 03/28/19 10:30 Resp 17 03/28/19 08:00 BP 160/60 H 03/28/19 10:30 Pulse Ox 96 03/28/19 08:00 Weight - Most Recent: 58.967 kg I&O - Last 24 hours: Intake & Output 03/27/19 03/28/19 03/28/19 22:59 06:59 14:59 Intake Total 1400 360 Balance 1400 360 Lab Results - Last 24 hrs: Laboratory Results - last 24 hr 03/28/19 03/28/19 Range/Units 05:42 05:42 PT 12.4 H (9.5-12.0) sec INR 1.14 (0.80-1.20) Sodium 140 (140-148) mmol/L Potassium 4.2 (3.6-5.2) mmol/L Chloride 105 (100-108) mmol/L Carbon Dioxide 28 (21-32) mmol/L Anion Gap 7.2 (5.0-14.0) mmol/L BUN 17 (7-18) mg/dL Creatinine 1.3 H (0.6-1.0) mg/dL Est Cr Clr Drug Dosing 30.44 mL/min Estimated GFR (MDRD) 40 L (>60) Glucose 101 (74-106) mg/dL Calcium 9.2 (8.5-10.1) mg/dL Troponin I 0.072 H* (0.000-0.056) ng/mL Med Orders - Current: Current Medications Acetaminophen (Tylenol) 650 mg PO Q4H PRN PRN Reason: Pain (Mild 1-3)/fever Aspirin (Halfprin) 81 mg PO DAILY [facility] Last Admin: 03/28/19 08:15 Dose: 81 mg Diltiazem HCl (Cardizem Cd) 120 mg PO DAILY [facility] Last Admin: 03/28/19 10:30 Dose: 120 mg Enoxaparin Sodium (Lovenox) 40 mg SUBCUT Q24H [facility] Last Admin: 03/27/19 17:12 Dose: 40 mg Lisinopril (Prinivil) 20 mg PO DAILY [facility] Last Admin: 03/28/19 08:15 Dose: 20 mg Metoprolol Succinate (Toprol Xl) 50 mg PO DAILY [facility] Last Admin: 03/28/19 08:15 Dose: 50 mg Ondansetron HCl (Zofran Odt) 4 mg PO Q6H PRN PRN Reason: Nausea able to take PO Senna/Docusate Sodium (Senna Plus) 1 tab PO BID PRN PRN Reason: Constipation Sodium Chloride (Saline Flush) 10 ml FLUSH ASDIRECTED PRN PRN Reason: Keep Vein Open Last Admin: 03/26/19 12:23 Dose: 10 ml Warfarin Sodium (Coumadin) 5 mg PO DAILY@1300 [facility] Last Admin: 03/28/19 10:34 Dose: 5 mg Discontinued Medications Diltiazem HCl (Diltiazem) 20 mg IVPUSH ONETIME ONE Stop: 03/26/19 12:07 Last Admin: 03/26/19 12:14 Dose: 20 mg Diltiazem HCl (Cardizem) 30 mg PO Q6H [facility] Last Admin: 03/28/19 04:08 Dose: 30 mg Diltiazem HCl 125 mg/ Dextrose (/Water) 125 mls @ 5 mls/hr IV TITRATE [facility]; Protocol Stop: 03/27/19 11:00 Last Admin: 03/27/19 02:06 Dose: 5 mg/hr, 5 mls/hr Sodium Chloride (Normal Saline) 1,000 mls @ 500 mls/hr IV ASDIRECTED [facility] Last Admin: 03/26/19 12:16 Dose: 500 mls/hr Sodium Chloride (Normal Saline) 1,000 mls @ 25 mls/hr IV ASDIRECTED [facility] Potassium Chloride (Klor-Con M20) 40 meq PO ONETIME ONE Stop: 03/27/19 11:01 Last Admin: 03/27/19 11:13 Dose: 40 meq - Exam Quality Assessment: Denies: Supplemental Oxygen General: Reports: Alert, Oriented, Cooperative, No Acute Distress Lungs: Reports: Normal Respiratory Effort Cardiovascular: Reports: Regular Rate, Irregular Rhythm GI/Abdominal Exam: Soft, No Distention Extremities: No Pedal Edema Psy/Mental Status: Reports: Alert, Normal Affect
== END 2019-03-28 11:11 | disposition home or self-care (01) | DRG 310 ==
LOC: JP.ED 11:38 → JP.ICU 14:29
PROVIDERS: ADMIT Internal Medicine; ATTEND Internal Medicine
DX: I48.91 Unspecified atrial fibrillation (principal); I48.2 Chronic atrial fibrillation; Z86.73 Personal history of transient ischemic attack (TIA), and cerebral infarction without residual deficits; Z66 Do not resuscitate; G58.9 Mononeuropathy, unspecified; R20.0 Anesthesia of skin; R20.2 Paresthesia of skin; I11.9 Hypertensive heart disease without heart failure; G58.8 Other specified mononeuropathies; R74.8 Abnormal levels of other serum enzymes; H54.7 Unspecified visual loss; H91.90 Unspecified hearing loss, unspecified ear
CPT/HCPCS: 36415; 71046; 80053; 81001; 83735; 83880; 84484; 85025; 93005; 96361; 96374; 99285; J3490 ×2; J7030; J7060; 80048; 80061; 84443; 85027; 85610; A9270-GY; J1650

== ENCOUNTER 2020-05-17 16:20 | Inpatient (IN) | payer MEDICARE ==
[2020-05-17] MEDS ORDERED: Metoprolol Tartrate 5 MG in Sodium Chloride 0.9% 50 ML IV ONE (16:45)
[2020-05-17] MEDS ORDERED: Metoprolol Tartrate 5 MG/5 ML SDV IVPUSH ONE (17:21)
[2020-05-17] MEDS ORDERED: Diltiazem 100 MG in Sodium Chloride 0.9% 100 ML IV SCH (17:45)
--- NOTE | 2020-05-17 18:09 | EDM.PDOC ---
ED HPI GENERAL MEDICAL PROBLEM - General Chief Complaint: Cardiovascular Problem Stated Complaint: HIGH HEART RATE Time Seen by Provider: 05/17/20 17:03 Source of Information: Reports: Patient, Family - History of Present Illness INITIAL COMMENTS - FREE TEXT/NARRATIVE: This is a 79 yo with hx of a-fib, HTN who presents from clinic in [facility] with RVR. Unfortunately she has been unable to fill her metoprolol, diltiazem, coumadin prescriptions. For the last several days she has noticed increasing dyspnea, particularly bad yesterday while out gardening. She went to urgent care where she was noted to be in RVR with rates in the 140-160s so was referred to the ER. She denies CP. She denies any infectious symptoms. - Related Data Allergies Allergy/AdvReac Type Severity Reaction Status Date / Time No Known Allergies Allergy Verified 05/17/20 16:39 Home Meds: Home Meds Lisinopril 40 mg PO DAILY 03/28/19 [History] Aspirin [Halfprin] 162 mg PO DAILY 05/17/20 [History] Cholecalciferol (Vitamin D3) [Vitamin D3] 2,000 unit PO DAILY 05/17/20 [History] Naproxen Sodium [Aleve] 220 mg PO BID PRN 05/17/20 [History] Turmeric Root Extract [Turmeric Curcumin] 1,500 mg PO DAILY 05/17/20 [History] Past Medical History HEENT History: Reports: Hard of Hearing, Impaired Vision Other HEENT History: hard of hearing Cardiovascular History: Reports: Afib, Hypertension Other Cardiovascular History: hypotension Other Respiratory History: SOB with humidity [employer] SPECIALIST History: Reports: Musculoskeletal History: Reports: Fracture, Gout Other Musculoskeletal History: 1976 accident broken nose reconstuction to nose. 5 ribs broken Neurological History: Reports: CVA - Past Surgical History Cardiovascular Surgical History: Reports: None - History Comment History Comment: Her daughter was called by nursing staff: patient is noncompliant with medical treatments and follow-up care. Daughter states known history of A. fib and hypertension. Daughter believes the patient was very concerned today, as seeking care and calling ambulance is not typical behavior. Daughter believes patient will be more open to medical care and treatment. Social & Family History - Family History Family Medical History: Noncontributory - Tobacco Use Smoking Status *Q: Former Smoker Used Tobacco, but Quit: Yes Month/Year Tobacco Last Used: 1993 - Caffeine Use Caffeine Use: Reports: Coffee, Tea - Recreational Drug Use Recreational Drug Use: No - Living Situation & Occupation Living situation: Reports: Single Occupation: Unemployed ED ROS GENERAL - Review of Systems Review Of Systems: See Below Constitutional: Reports: No Symptoms HEENT: Reports: No Symptoms Respiratory: Reports: Shortness of Breath Cardiovascular: Reports: Palpitations Endocrine: Reports: No Symptoms GI/Abdominal: Reports: No Symptoms : Reports: No Symptoms Musculoskeletal: Reports: No Symptoms Skin: Reports: No Symptoms Neurological: Reports: No Symptoms Psychiatric: Reports: No Symptoms Hematologic/Lymphatic: Reports: No Symptoms Immunologic: Reports: No Symptoms ED EXAM, GENERAL - Physical Exam Exam: See Below Exam Limited By: No Limitations General Appearance: Alert, No Apparent Distress Ears: Normal External Exam Nose: Normal Inspection Throat/Mouth: Normal Inspection Head: Atraumatic, Normocephalic Neck: Normal Inspection Respiratory/Chest: Lungs Clear Cardiovascular: No Murmur, Tachycardia GI/Abdominal: Soft, Non-Tender Back Exam: Normal Inspection Extremities: Normal Inspection, No Pedal Edema Neurological: Alert, Oriented Psychiatric: Normal Affect, Normal Mood Skin Exam: Warm, Dry Course - Vital Signs Last Recorded V/S: Last Vital Signs Temp 36.1 C 05/17/20 16:34 Pulse 137 H 05/17/20 17:24 Resp 23 H 05/17/20 16:34 BP 190/110 H 05/17/20 17:24 Pulse Ox 99 05/17/20 16:34 - Orders/Labs/Meds Orders: Active Orders 24 hr Category Date Time Status CXR [Chest 2V] [CR] Stat Exams 05/17/20 17:13 Taken Diltiazem [Cardizem] 100 mg Med 05/17/20 17:45 Active Sodium Chloride 0.9% [Normal Saline] 100 ml IV TITRATE Medication Orders Diltiazem HCl 100 mg/ Sodium (Chloride) 100 mls @ 5 mls/hr IV TITRATE [facility]; Protocol Labs: Laboratory Tests 05/17/20 05/17/20 05/17/20 Range/Units 17:18 17:18 17:18 WBC 9.7 (4.5-11.0) K/uL RBC 4.68 (3.30-5.50) M/uL Hgb 13.0 D (12.0-15.0) g/dL Hct 39.9 (36.0-48.0) % MCV 85 (80-98) fL MCH 28 (27-31) pg MCHC 33 (32-36) % Plt Count 225 (150-400) K/uL Sodium 138 L (140-148) mmol/L Potassium 5.1 (3.6-5.2) mmol/L Chloride 103 (100-108) mmol/L Carbon Dioxide 23 (21-32) mmol/L Anion Gap 17.1 H (5.0-14.0) mmol/L BUN 16 (7-18) mg/dL Creatinine 1.4 H (0.6-1.0) mg/dL Est Cr Clr Drug Dosing 27.84 mL/min Estimated GFR (MDRD) 36 L (>60) Glucose 98 (74-106) mg/dL Calcium 9.2 (8.5-10.1) mg/dL NT-Pro-B Natriuret Pep 5798 H (5-450) pg/mL Meds: Medications Generic Name Dose Route Start Last Admin Trade Name Freq PRN Reason Stop Dose Admin Diltiazem HCl 100 mg/ Sodium 100 mls @ 5 mls/hr 05/17/20 17:45 Chloride IV TITRATE [facility] Protocol 5 MG/HR Discontinued Medications Generic Name Dose Route Start Last Admin Trade Name Freq PRN Reason Stop Dose Admin Metoprolol Tartrate 5 mg/ 55 mls @ 100 mls/hr 05/17/20 16:45 Sodium Chloride IV 05/17/20 17:17 ONETIME ONE Metoprolol Tartrate 5 mg 05/17/20 17:21 05/17/20 17:24 Lopressor IVPUSH 05/17/20 17:22 5 mg ONETIME ONE Administration - Re-Assessments/Exams Free Text/Narrative Re-Assessment/Exam: This is a 79 yo with hx of a-fib, HTN who presents in a-fib with RVR, dyspnea. On exam initially with rates in 140-160s. Hypertensive. No signs of volume overload. POCUS showed decreased EF and pulmonary B-lines indicative of pulmonary edema. I am suspicious that she may have a cardiomyopathy induced by her tachydysrhythmia. CXR does show some volume overload on my read. Labs otherwise remarkable for elevated BMP. We started rate controlling with low dose of lopressor (5 mg) which brought down her rates to 100-120. Switched to dilt gtt without bolus per hospitalist request. She will need to be admitted for her a-fib with RVR and acute CHF. 05/17/20 18:20 Departure - Departure Time of Disposition: 17:30 Disposition: Admitted As Inpatient 68 Clinical Impression: Atrial fibrillation with RVR Acute congestive heart failure Qualifiers: Heart failure type: systolic Qualified Code(s): I50.21 - Acute systolic (congestive) heart failure Referrals: PCP,None [Primary Care Provider] - Sepsis Event Note (ED) - Evaluation Sepsis Screening Result: No Definite Risk - Focused Exam Vital Signs: Vital Signs Temp Pulse Pulse Resp BP BP Pulse Ox 05/17/20 17:24 137 H 190/110 H 05/17/20 16:34 36.1 C 162 H 23 H 79/58 L 99 05/17/20 16:29 36.1 C 162 H 23 H 79/58 L 99 - My Orders Last 24 Hours: My Active Orders 05/17/20 17:13 CXR [Chest 2V] [CR] Stat 05/17/20 17:45 Diltiazem [Cardizem] 100 mg Sodium Chloride 0.9% [Normal Saline] 100 ml IV TITRATE - Assessment/Plan Last 24 Hours: My Active Orders 05/17/20 17:13 CXR [Chest 2V] [CR] Stat 05/17/20 17:45 Diltiazem [Cardizem] 100 mg Sodium Chloride 0.9% [Normal Saline] 100 ml IV TITRATE
[2020-05-17] MEDS ORDERED: Furosemide 40 MG/4 ML VIAL IVPUSH ONE (19:16)
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
[2020-05-17] MEDS ORDERED: Melatonin 3 MG Tab PO PRN (20:03)
[2020-05-17] MEDS ORDERED: Ondansetron 4 MG Tab.DIS PO PRN (20:03)
[2020-05-17] MEDS ORDERED: Magnesium Hydroxide 400 MG/5 ML Susp 30 ML Cup PO PRN (20:03)
[2020-05-17] MEDS ORDERED: Enoxaparin 60 MG/0.6 ML Syringe SUBCUT ONE (20:03)
[2020-05-17] MEDS ORDERED: Ondansetron 4 MG/2 ML SDV IV PRN (20:03)
[2020-05-17] MEDS ORDERED: Acetaminophen 325 MG Tab PO PRN (20:03)
[2020-05-17] MEDS ORDERED: Albuterol 0.083% 2.5 MG/3 ML Neb Soln NEB PRN (20:03)
[2020-05-17] MEDS ORDERED: LORazepam 2 MG/ML SDV IVPUSH PRN (20:03)
[2020-05-17] MEDS ORDERED: Carvedilol 6.25 MG Tab PO SCH (21:00)
[2020-05-18] MEDS: Aspirin 81 MG Tab.EC PO SCH (08:32)
[2020-05-18] MEDS: Carvedilol 6.25 MG Tab PO SCH ×2 (08:32→17:02)
--- NOTE | 2020-05-18 09:08 | CR ---
CHEST: 2 view CLINICAL HISTORY:Dyspnea COMPARISON:2016 FINDINGS: Heart is moderately enlarged. There is mild vascular cephalization. There is diffuse interstitial prominence with Rell B lines B lines in the bases is also small effusion. There is some fluid in the major fissure on the right. Her scribed aorta Impression: Cardiomegaly with vascular congestion and mild interstitial edema consistent with CHF Small bibasal effusions..
--- NOTE | 2020-05-18 09:34 | PCM.PN ---
- General Info Date of Service: 05/18/20 Subjective Update: No acute events overnight. Excellent response to the diltiazem with improved rate control. Excellent response to diuresis and her shortness of breath is much better. She was able to walk to the bathroom and back without much shortness of breath. No orthopnea overnight. No chest pain. She feels quite a bit better but not back to normal as of yet. Kidney function stable. Functional Status: Reports: Pain Controlled, Tolerating Diet - Review of Systems Pulmonary: Reports: Shortness of Breath Cardiovascular: Denies: Chest Pain - Patient Data Vitals - Most Recent: Last Vital Signs Temp 36.2 C 05/18/20 08:00 Pulse 90 05/18/20 08:32 Resp 16 05/18/20 09:00 BP 141/84 H 05/18/20 09:00 Pulse Ox 95 05/18/20 09:00 Weight - Most Recent: 59.602 kg I&O - Last 24 Hours: Intake & Output 05/17/20 05/18/20 05/18/20 22:59 06:59 14:59 Intake Total 174 480 Output Total 1000 2150 Balance -999 -1975 480 Lab Results Last 24 Hours: Laboratory Results - last 24 hr 05/17/20 05/17/20 05/17/20 Range/Units 17:18 17:18 17:18 WBC 9.7 (4.5-11.0) K/uL RBC 4.68 (3.30-5.50) M/uL Hgb 13.0 D (12.0-15.0) g/dL Hct 39.9 (36.0-48.0) % MCV 85 (80-98) fL MCH 28 (27-31) pg MCHC 33 (32-36) % Plt Count 225 (150-400) K/uL PT (9.5-12.0) sec INR (0.80-1.20) Sodium 138 L (140-148) mmol/L Potassium 5.1 (3.6-5.2) mmol/L Chloride 103 (100-108) mmol/L Carbon Dioxide 23 (21-32) mmol/L Anion Gap 17.1 H (5.0-14.0) mmol/L BUN 16 (7-18) mg/dL Creatinine 1.4 H (0.6-1.0) mg/dL Est Cr Clr Drug Dosing 27.84 mL/min Estimated GFR (MDRD) 36 L (>60) Glucose 98 (74-106) mg/dL Calcium 9.2 (8.5-10.1) mg/dL Magnesium (1.8-2.4) mg/dL Troponin I (0.000-0.056) ng/mL NT-Pro-B Natriuret Pep 5798 H (5-450) pg/mL 05/17/20 05/18/20 05/18/20 Range/Units 19:16 05:22 05:22 WBC 8.3 (4.5-11.0) K/uL RBC 4.23 (3.30-5.50) M/uL Hgb 11.3 L (12.0-15.0) g/dL Hct 35.7 L (36.0-48.0) % MCV 84 (80-98) fL MCH 27 (27-31) pg MCHC 32 (32-36) % Plt Count 241 (150-400) K/uL PT 12.2 H (9.5-12.0) sec INR 1.14 D (0.80-1.20) Sodium (140-148) mmol/L Potassium (3.6-5.2) mmol/L Chloride (100-108) mmol/L Carbon Dioxide (21-32) mmol/L Anion Gap (5.0-14.0) mmol/L BUN (7-18) mg/dL Creatinine (0.6-1.0) mg/dL Est Cr Clr Drug Dosing mL/min Estimated GFR (MDRD) (>60) Glucose (74-106) mg/dL Calcium (8.5-10.1) mg/dL Magnesium (1.8-2.4) mg/dL Troponin I 0.080 H* (0.000-0.056) ng/mL NT-Pro-B Natriuret Pep (5-450) pg/mL 05/18/20 Range/Units 05:22 WBC (4.5-11.0) K/uL RBC (3.30-5.50) M/uL Hgb (12.0-15.0) g/dL Hct (36.0-48.0) % MCV (80-98) fL MCH (27-31) pg MCHC (32-36) % Plt Count (150-400) K/uL PT (9.5-12.0) sec INR (0.80-1.20) Sodium 144 (140-148) mmol/L Potassium 3.9 (3.6-5.2) mmol/L Chloride 108 (100-108) mmol/L Carbon Dioxide 27 (21-32) mmol/L Anion Gap 9.4 (5.0-14.0) mmol/L BUN 17 (7-18) mg/dL Creatinine 1.4 H (0.6-1.0) mg/dL Est Cr Clr Drug Dosing 27.84 mL/min Estimated GFR (MDRD) 36 L (>60) Glucose 83 (74-106) mg/dL Calcium 9.0 (8.5-10.1) mg/dL Magnesium 2.0 (1.8-2.4) mg/dL Troponin I 0.080 H* (0.000-0.056) ng/mL NT-Pro-B Natriuret Pep (5-450) pg/mL Med Orders - Current: Current Medications Acetaminophen (Tylenol) 650 mg PO Q4H PRN PRN Reason: Pain (Mild 1-3)/fever Albuterol (Proventil Neb Soln) 2.5 mg NEB Q4H PRN PRN Reason: Shortness Of Breath/wheezing Aspirin (Halfprin) 162 mg PO DAILY [facility] Last Admin: 05/18/20 08:32 Dose: 162 mg Documented by: Carvedilol (Coreg) 6.25 mg PO BIDMEALS [facility] Last Admin: 05/18/20 08:32 Dose: 6.25 mg Documented by: Diltiazem HCl 100 mg/ Sodium (Chloride) 100 mls @ 5 mls/hr IV TITRATE [facility]; Protocol Last Admin: 05/17/20 18:17 Dose: 5 mg/hr, 5 mls/hr Documented by: Lorazepam (Ativan) 0.5 mg IVPUSH Q4H PRN PRN Reason: Nausea/Vomiting Magnesium Hydroxide (Milk Of Magnesia) 30 ml PO Q12H PRN PRN Reason: Constipation Melatonin (Melatonin) 9 mg PO BEDTIME PRN PRN Reason: sleep Ondansetron HCl (Zofran) 4 mg IV Q6H PRN PRN Reason: Nausea/Vomiting Ondansetron HCl (Zofran Odt) 4 mg PO Q6H PRN PRN Reason: Nausea able to take PO Senna/Docusate Sodium (Senna Plus) 1 tab PO BID PRN PRN Reason: Constipation Discontinued Medications Carvedilol (Coreg) 6.25 mg PO BID MELANIE Last Admin: 05/17/20 20:35 Dose: 6.25 mg Documented by: Enoxaparin Sodium (Lovenox) 60 mg SUBCUT ONETIME ONE Stop: 05/17/20 20:04 Last Admin: 05/17/20 20:35 Dose: 60 mg Documented by: Furosemide (Lasix) 20 mg IVPUSH NOW ONE Stop: 05/17/20 19:17 Last Admin: 05/17/20 20:35 Dose: 20 mg Documented by: Metoprolol Tartrate 5 mg/ (Sodium Chloride) 55 mls @ 100 mls/hr IV ONETIME ONE Stop: 05/17/20 17:17 Last Admin: 05/17/20 20:04 Dose: Not Given Documented by: Metoprolol Tartrate (Lopressor) 5 mg IVPUSH ONETIME ONE Stop: 05/17/20 17:22 Last Admin: 05/17/20 17:24 Dose: 5 mg Documented by: - Exam Quality Assessment: No: Supplemental Oxygen General: Alert, Oriented, Cooperative, No Acute Distress Neck: JVD Lungs: Clear to Auscultation, Normal Respiratory Effort Cardiovascular: Regular Rate, Irregular Rhythm GI/Abdominal Exam: Soft, No Distention Extremities: No Pedal Edema. No: Increased Warmth Skin: Warm, Dry Psy/Mental Status: Alert, Normal Affect Sepsis Event Note - Evaluation Sepsis Screening Result: No Definite Risk - Focused Exam Vital Signs: Vital Signs Temp Pulse Pulse Resp BP BP Pulse Ox 05/18/20 09:00 16 141/84 H 95 05/18/20 08:32 90 141/74 H 05/18/20 08:00 36.2 C 22 H 141/74 H 94 L 05/18/20 07:00 14 154/91 H 95 05/18/20 05:00 70 20 151/67 H 96 05/18/20 04:00 35.8 C L 68 22 H 130/66 91 L 05/18/20 03:00 61 16 141/70 H 92 L 05/18/20 02:00 63 93 H 156/83 H 93 L 05/18/20 01:00 63 15 153/80 H 05/18/20 00:00 75 14 151/71 H 95 05/17/20 23:00 35.6 C L 86 21 H 170/97 H 95 05/17/20 22:00 81 28 H 161/95 H Date Exam was Performed: 05/18/20 Time Exam was Performed: 16:25 - Problem List & Annotations (1) Atrial fibrillation with RVR SNOMED Code(s): 599945572160658 Code(s): I48.91 - UNSPECIFIED ATRIAL FIBRILLATION Status: Acute Current Visit: Yes (2) Systolic congestive heart failure, NYHA class 3 SNOMED Code(s): 582571494, 586488029, 193006348 Code(s): I50.20 - UNSPECIFIED SYSTOLIC (CONGESTIVE) HEART FAILURE Status: Acute Current Visit: Yes Qualifiers: Congestive heart failure chronicity: acute Qualified Code(s): I50.21 - Acute systolic (congestive) heart failure (3) Stage 3b chronic kidney disease SNOMED Code(s): 124247707 Code(s): N18.3 - CHRONIC KIDNEY DISEASE, STAGE 3 (MODERATE) Status: Chronic Current Visit: Yes - Problem List Review Problem List Initiated/Reviewed/Updated: Yes - My Orders Last 24 Hours: My Active Orders 05/17/20 Dinner 2 Gram Sodium Diet [DIET] 05/17/20 19:19 Resuscitation Status Routine 05/17/20 20:03 Acetaminophen [Tylenol] 650 mg PO Q4H PRN Albuterol [Proventil Neb Soln] 2.5 mg NEB Q4H PRN Docusate Sodium/Sennosides [Senna Plus] 1 tab PO BID PRN LORazepam [Ativan] 0.5 mg IVPUSH Q4H PRN Magnesium Hydroxide [Milk of Magnesia] 30 ml PO Q12H PRN Melatonin 9 mg PO BEDTIME PRN Ondansetron [Zofran ODT] 4 mg PO Q6H PRN Ondansetron [Zofran] 4 mg IV Q6H PRN 05/17/20 20:03 Patient Status [ADT] Routine Cardiac Monitoring [RC] Q6H Height and Weight [RC] DAILY Intake and Output [RC] QSHIFT Notify Provider Vital Signs [RC] ASDIRECTED Oxygen Therapy [RC] PRN RT Aerosol Therapy [RC] ASDIRECTED Up With Assistance [RC] ASDIRECTED VTE/DVT Education [RC] Per Unit Routine Vital Signs [RC] Q1HR 05/18/20 07:00 Echo Comp wo Cont [US] Routine 05/18/20 08:00 carvediloL [Coreg] 6.25 mg PO BIDMEALS 05/18/20 09:00 Aspirin [Halfprin] 162 mg PO DAILY 05/18/20 09:31 Furosemide [Lasix] 20 mg IVPUSH ONETIME ONE 05/18/20 09:45 Enoxaparin [Lovenox] 40 mg SUBCUT DAILY 05/18/20 10:00 Diltiazem IR [Cardizem] 30 mg PO Q6HR 05/19/20 05:00 BASIC METABOLIC PANEL,BMP [CHEM] Timed - Plan Plan:: ASSESSMENT AND PLAN - Atrial fibrillation with rapid ventricular response-Her CHADS-VASC score is 7. Excellent response to medication so far. -Continue aspirin -Enoxaparin x1 today -Discuss systemic anticoagulation with patient and family when available -Transition to p.o. diltiazem, anticipate transition to long-acting tomorrow morning -Continue carvedilol -Cardiac monitoring Diastolic congestive heart failure, acute-bedside ultrasound showed a reduced ejection fraction yesterday but formal echocardiogram today showed a normal ejection fraction. She does have LVH and severe diastolic dysfunction. No evidence for stress cardiomyopathy. Still some volume overload. -Furosemide x1 this morning -Beta-beto as above Stage III chronic kidney disease-creatinine is stable. Mild troponin elevation-likely demand ischemia from her heart failure and atrial fibrillation. Level stable on repeat this morning. -Cardiac monitoring Maintenance issues - - DVT prophylaxis -enoxaparin - GI prophylaxis -not indicated - Nutrition -low-sodium Disposition -I would anticipate discharge home after the hospital stay Primary care physician -Vini in [place] Lopes M.D.
[2020-05-18] MEDS ORDERED: Furosemide 20 MG/2 ML VIAL IVPUSH ONE (10:00)
[2020-05-18] MEDS: Diltiazem IR 30 MG Tab PO SCH ×3 (10:14→21:42)
[2020-05-18] MEDS: Enoxaparin 40 MG/0.4 ML Syringe SUBCUT SCH (10:15)
[2020-05-19] MEDS: Diltiazem IR 30 MG Tab PO SCH ×2 (04:42→11:16)
[2020-05-19] MEDS: Carvedilol 6.25 MG Tab PO SCH (08:21)
[2020-05-19] MEDS: Aspirin 81 MG Tab.EC PO SCH (08:22)
[2020-05-19] MEDS: Enoxaparin 40 MG/0.4 ML Syringe SUBCUT SCH (08:22)
[2020-05-19] MEDS ORDERED: Potassium Chloride 20 MEQ Tab.ER PO ONE (09:00)
--- NOTE | 2020-05-19 10:25 | PCM.DCSUM1 ---
Discharge Summary - Hospital Course Brief History: 79-year-old female with history of chronic atrial fibrillation, diastolic congestive heart failure and stage III kidney disease who presented with palpitations and dyspnea on exertion. She was admitted for management of an exacerbation of her congestive heart failure as well as rapid atrial fibrillation. Diagnosis: Stroke: No - Discharge Data Discharge Date: 05/19/20 Discharge Disposition: Home, Self-Care 01 Condition: Good - Referral to Home Health Primary Care Physician: PCP None - Discharge Diagnosis/Problem(s) (1) Atrial fibrillation with RVR SNOMED Code(s): 223555112533232 ICD Code: I48.91 - UNSPECIFIED ATRIAL FIBRILLATION Status: Acute (2) Systolic congestive heart failure, NYHA class 3 SNOMED Code(s): 579297315, 790565747, 631548737 ICD Code: I50.20 - UNSPECIFIED SYSTOLIC (CONGESTIVE) HEART FAILURE Status: Acute Qualifiers: Congestive heart failure chronicity: acute Qualified Code(s): I50.21 - Acute systolic (congestive) heart failure (3) Stage 3b chronic kidney disease SNOMED Code(s): 524019427 ICD Code: N18.3 - CHRONIC KIDNEY DISEASE, STAGE 3 (MODERATE) Status: Chronic (4) Accelerated hypertension SNOMED Code(s): 02740889 ICD Code: I10 - ESSENTIAL (PRIMARY) HYPERTENSION Status: Acute - Patient Summary/Data Hospital Course: Gloria presented to the emergency room with progressive dyspnea and palpitations. Work-up in the emergency room revealed atrial fibrillation with a rapid ventri cular response and evidence for volume overload including pulmonary vascular congestion and some pulmonary edema. She was quite hypertensive with systolic pressures around 200. She was started on diltiazem for rate control of the atrial fibrillation and given a dose of furosemide for the congestive heart failure. She was admitted to the intensive care unit for further management. For the atrial fibrillation I did add carvedilol to the diltiazem. Overnight following admission her respiratory status did improve but she still had some volume overload by the next morning so she received another dose of furosemide. She was feeling much better the morning after admission. She was not hypoxic. We had achieved good rate control with the diltiazem and carvedilol. Blood pressures remained moderately elevated at about 100 5260 systolic. We did perform an echocardiogram the morning after admission which showed preserved left ventricular function but she did have LVH as well as severe diastolic dysfunction. There were no major valvular issues. We were able to transition her from IV to oral diltiazem with ongoing acceptable rate control. Overnight the second night there were no acute issues and rate control remain good. On the morning of discharge she is still in atrial fibrillation but has good rate control. There is no ongoing evidence for volume overload. Blood pressures r emain moderately elevated. We reviewed medications for atrial fibrillation including beta-beto, calcium channel beto and potentially an anticoagulant. She was agreeable to continuing the carvedilol and the calcium channel beto. I did talk her into a low-dose lisinopril to help with additional blood pressure and heart failure management. We did talk about DOAC versus warfarin and at this time she is apprehensive about starting the medication. She has had difficulty with monitoring with the warfarin and has had some bleeding issues with anticoagulation in the past. I did review with her the risk of atrial fibrillation and clotting which could lead to stroke. At this time she is going to stick with her aspirin dosing in the morning. She has stage IIIb kidney disease and this has been stable throughout the hospital stay. She feels well enough to go home at this time. She is going to be discharged in stable condition to home. She will have early follow-up at [facility] in [place], [place]. - Patient Instructions Diet: Heart Healthy Diet Activity: As Tolerated Showering/Bathing: May Shower Notify Provider of: Fever, Increased Pain Other/Special Instructions: 1. You were in the hospital for management of diastolic congestive heart failure and atrial fibrillation with a rapid ventricular response. Your condition has been improving with short-term diuretic therapy as well as aggressive rate control utilizing the medications discussed below. Your atrial fibrillation rate has been very well controlled. I would recommend that you continue taking carvedilol 6.25 mg twice daily as well as diltiazem 120 mg once daily in the morning. Both of these medications help to slow down your heart rate. Your blood pressure has remained moderately elevated and I do recommend that you take lisinopril 10 mg once daily to help lower your blood pressure. This is a dose change from your previous carvedilol dose. Please continue to take your 2 baby aspirins each day. These medications help to make your platelets slippery and reduce the risk of forming a blood clot which could potentially turn into a stroke. I do recommend that you take a blood thinning medication such as warfarin or 1 of the newer medications like Eliquis. You should talk to your primary care doctor about 1 of these medications after hospital discharge. We did talk about them during the hospital stay but you were apprehensive about starting 1 of these medications. We did perform an echocardiogram (ultrasound test of the heart) during your hospital stay. This showed that you have a normal ejection fraction (pumping function of the heart) but that your heart has difficulty relaxing resulting in the diagnosis of diastolic congestive heart failure. We have started you on excellent medications to help manage this congestive heart failure. 2. Please follow-up with your primary care provider in the next 1 to 2 weeks or sooner if symptoms worsen. - Discharge Plan *PRESCRIPTION DRUG MONITORING PROGRAM REVIEWED*: Not Applicable *COPY OF PRESCRIPTION DRUG MONITORING REPORT IN PATIENT OMARI: Not Applicable Prescriptions/Med Rec: carvediloL [Coreg] 6.25 mg PO BIDMEALS #180 tablet Diltiazem HCl [Diltiazem 24Hr ER] 120 mg PO DAILY #90 cap.er.24h lisinopriL [Lisinopril] 10 mg PO DAILY #90 tablet Home Medications: Home Meds Aspirin [Halfprin] 162 mg PO DAILY 05/17/20 [History] Cholecalciferol (Vitamin D3) [Vitamin D3] 2,000 unit PO DAILY 05/17/20 [History] Naproxen Sodium [Aleve] 220 mg PO BID PRN 05/17/20 [History] Turmeric Root Extract [Turmeric Curcumin] 1,500 mg PO DAILY 05/17/20 [History] Diltiazem HCl [Diltiazem 24Hr ER] 120 mg PO DAILY #90 cap.er.24h 05/19/20 [Rx] carvediloL [Coreg] 6.25 mg PO BIDMEALS #180 tablet 05/19/20 [Rx] lisinopriL [Lisinopril] 10 mg PO DAILY #90 tablet 05/19/20 [Rx] Oxygen Therapy Mode: Room Air Patient Handouts: Carvedilol tablets, Heart Failure, Diagnosis, Heart Failure Medicines Referrals: Annemarie Covarrubias PA [Consulting Physician] - (1-2 weeks - f/u hospital stay for CHF, afib) - Discharge Summary/Plan Comment DC Time >30 min.: Yes (45-extensive counseling about heart failure and afib ) - Patient Data Vitals - Most Recent: Last Vital Signs Temp 36.3 C 05/19/20 07:00 Pulse 71 05/19/20 08:21 Resp 12 05/19/20 07:00 BP 155/68 H 05/19/20 08:21 Pulse Ox 98 05/19/20 07:00 Weight - Most Recent: 59.602 kg I&O - Last 24 hours: Intake & Output 05/18/20 05/19/20 05/19/20 22:59 06:59 14:59 Intake Total 12 Output Total 300 350 Balance -288 -350 Lab Results - Last 24 hrs: Laboratory Results - last 24 hr 05/19/20 Range/Units 04:46 Sodium 142 (140-148) mmol/L Potassium 3.3 L (3.6-5.2) mmol/L Chloride 106 (100-108) mmol/L Carbon Dioxide 28 (21-32) mmol/L Anion Gap 11.3 (5.0-14.0) mmol/L BUN 27 H D (7-18) mg/dL Creatinine 1.4 H (0.6-1.0) mg/dL Est Cr Clr Drug Dosing 27.84 mL/min Estimated GFR (MDRD) 36 L (>60) Glucose 92 (74-106) mg/dL Calcium 8.5 (8.5-10.1) mg/dL Med Orders - Current: Current Medications Acetaminophen (Tylenol) 650 mg PO Q4H PRN PRN Reason: Pain (Mild 1-3)/fever Albuterol (Proventil Neb Soln) 2.5 mg NEB Q4H PRN PRN Reason: Shortness Of Breath/wheezing Aspirin (Halfprin) 162 mg PO DAILY COUNT INCLUDES THE [facility] Last Admin: 05/19/20 08:22 Dose: 162 mg Documented by: Carvedilol (Coreg) 6.25 mg PO BIDMEALS COUNT INCLUDES THE [facility] Last Admin: 05/19/20 08:21 Dose: 6.25 mg Documented by: Diltiazem HCl (Cardizem Cd) 120 mg PO ONETIME ONE Stop: 05/19/20 11:01 Enoxaparin Sodium (Lovenox) 40 mg SUBCUT DAILY COUNT INCLUDES THE [facility] Last Admin: 05/19/20 08:22 Dose: 40 mg Documented by: Lisinopril (Prinivil) 10 mg PO ONETIME ONE Stop: 05/19/20 11:01 Lorazepam (Ativan) 0.5 mg IVPUSH Q4H PRN PRN Reason: Nausea/Vomiting Magnesium Hydroxide (Milk Of Magnesia) 30 ml PO Q12H PRN PRN Reason: Constipation Melatonin (Melatonin) 9 mg PO BEDTIME PRN PRN Reason: sleep Ondansetron HCl (Zofran) 4 mg IV Q6H PRN PRN Reason: Nausea/Vomiting Ondansetron HCl (Zofran Odt) 4 mg PO Q6H PRN PRN Reason: Nausea able to take PO Senna/Docusate Sodium (Senna Plus) 1 tab PO BID PRN PRN Reason: Constipation Discontinued Medications Carvedilol (Coreg) 6.25 mg PO BID COUNT INCLUDES THE [facility] Last Admin: 05/17/20 20:35 Dose: 6.25 mg Documented by: Diltiazem HCl (Cardizem) 30 mg PO Q6H COUNT INCLUDES THE [facility] Last Admin: 05/19/20 04:42 Dose: 30 mg Documented by: Enoxaparin Sodium (Lovenox) 60 mg SUBCUT ONETIME ONE Stop: 05/17/20 20:04 Last Admin: 05/17/20 20:35 Dose: 60 mg Documented by: Furosemide (Lasix) 20 mg IVPUSH NOW ONE Stop: 05/17/20 19:17 Last Admin: 05/17/20 20:35 Dose: 20 mg Documented by: Furosemide (Lasix) 20 mg IVPUSH ONETIME ONE Stop: 05/18/20 10:01 Last Admin: 05/18/20 10:13 Dose: 20 mg Documented by: Metoprolol Tartrate 5 mg/ (Sodium Chloride) 55 mls @ 100 mls/hr IV ONETIME ONE Stop: 05/17/20 17:17 Last Admin: 05/17/20 20:04 Dose: Not Given Documented by: Diltiazem HCl 100 mg/ Sodium (Chloride) 100 mls @ 5 mls/hr IV TITRATE COUNT INCLUDES THE [facility]; Protocol Stop: 05/18/20 11:00 Last Titration: 05/18/20 11:13 Dose: 0 mg/hr, 0 mls/hr Documented by: Metoprolol Tartrate (Lopressor) 5 mg IVPUSH ONETIME ONE Stop: 05/17/20 17:22 Last Admin: 05/17/20 17:24 Dose: 5 mg Documented by: Potassium Chloride (Klor-Con M20) 40 meq PO ONETIME ONE Stop: 05/19/20 09:01 Last Admin: 05/19/20 10:17 Dose: 40 meq Documented by:
[2020-05-19] MEDS ORDERED: Diltiazem 120 MG Cap.CD PO ONE (11:00)
[2020-05-19] MEDS ORDERED: Lisinopril 10 MG Tab PO ONE (11:00)
[2020-05-19 12:59] VITALS: BP 158/82; PULSE 75
== END 2020-05-19 14:00 | disposition home or self-care (01) | DRG 291 ==
LOC: JP.ED 16:20 → JP.ICU 19:18 → UNDOADMIN 19:18 → JP.ICU 20:03 → UNDODISIN 05-19 14:00
PROVIDERS: ADMIT Internal Medicine; ATTEND Internal Medicine
DX: I13.0 Hypertensive heart and chronic kidney disease with heart failure and stage 1 through stage 4 chronic kidney disease, or unspecified chronic kidney disease (principal); I11.0 Hypertensive heart disease with heart failure; I50.21 Acute systolic (congestive) heart failure; I24.8 Other forms of acute ischemic heart disease; I48.91 Unspecified atrial fibrillation; N18.3 Chronic kidney disease, stage 3 (moderate); I95.9 Hypotension, unspecified; H54.7 Unspecified visual loss; H91.90 Unspecified hearing loss, unspecified ear; M10.9 Gout, unspecified; Z86.73 Personal history of transient ischemic attack (TIA), and cerebral infarction without residual deficits; Z79.82 Long term (current) use of aspirin; Z79.899 Other long term (current) drug therapy; Z87.891 Personal history of nicotine dependence; Z79.01 Long term (current) use of anticoagulants
CPT/HCPCS: 36415; 71046 ×2; 80048; 83880; 84484; 85027; 96365; 96375; 99285; J3490 ×2; J7050; 83735; 85610; 93306; 99222-AI; 99231; 99239; A9270-GY; J1650; J1940

== ENCOUNTER 2021-04-01 10:53 | Emergency (ER) | payer MEDICARE ==
[2021-04-01] MEDS ORDERED: Carvedilol 12.5 MG Tab PO ONE (11:35)
--- NOTE | 2021-04-01 11:37 | EDM.PDOC ---
ED HPI GENERAL MEDICAL PROBLEM - General Chief Complaint: Respiratory Problem Stated Complaint: WEAK/SHORTNESS OF BREATH Time Seen by Provider: 04/01/21 11:20 Source of Information: Reports: Patient, Family, Old Records, RN History Limitations: Reports: Other (patient is somewhat non-compliant, very hard of hearing, and may have mild dementia) - History of Present Illness INITIAL COMMENTS - FREE TEXT/NARRATIVE: 80 yo female is brought in by a daughter for subjective SOB. She has known CHF and afib and was recently prescribed lisinopril which she is not currently taking. It sounds like she his taking her other meds including her carvedilol. There is no fever, CP, cough or leg swelling/pain. Onset: Today, Unknown/Unsure Onset Date: 04/01/21 Duration: Hour(s):, Waxing/Waning Location: Reports: Chest Quality: Reports: Other (no pain) Severity: Moderate Improves with: Reports: Rest Worsens with: Reports: Movement (exertion) Context: Reports: Other (See HPI) Associated Symptoms: Reports: Shortness of Breath. Denies: Chest Pain, Cough, Diaphoresis, Fever/Chills Treatments TECHNICAL ASSOCIATE: Reports: Other (see below) (none) - Related Data Allergies Allergy/AdvReac Type Severity Reaction Status Date / Time No Known Allergies Allergy Verified 05/17/20 16:39 Home Meds: Home Meds Aspirin [Halfprin] 162 mg PO DAILY 05/17/20 [History] Cholecalciferol (Vitamin D3) [Vitamin D3] 2,000 unit PO DAILY 05/17/20 [History] Naproxen Sodium [Aleve] 220 mg PO BID PRN 05/17/20 [History] Turmeric Root Extract [Turmeric Curcumin] 1,500 mg PO DAILY 05/17/20 [History] Diltiazem HCl [Diltiazem 24Hr ER] 120 mg PO DAILY #90 cap.er.24h 05/19/20 [Rx] carvediloL [Coreg] 6.25 mg PO BIDMEALS #180 tablet 05/19/20 [Rx] lisinopriL [Lisinopril] 10 mg PO DAILY #90 tablet 05/19/20 [Rx] Past Medical History HEENT History: Reports: Hard of Hearing, Impaired Vision Other HEENT History: hard of hearing Cardiovascular History: Reports: Afib, High Cholesterol, Hypertension, Other (See Below) Other Cardiovascular History: hypotension,,, CHF Respiratory History: Reports: Other (See Below) Other Respiratory History: SOB with humidity 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 5 ribs broken Neurological History: Reports: CVA Psychiatric History: Reports: Other (See Below) - Past Surgical History Head Surgeries/Procedures: Reports: None HEENT Surgical History: Reports: None Cardiovascular Surgical History: Reports: None Respiratory Surgical History: Reports: None Neurological Surgical History: Reports: None Musculoskeletal Surgical History: Reports: None Dermatological Surgical History: Reports: None - History Comment History Comment: Her daughter was called by nursing staff: patient is noncompliant with medical treatments and follow-up care. Daughter states known history of A. fib and hypertension. Daughter believes the patient was very concerned today, as seeking care and calling ambulance is not typical behavior. Daughter believes patient will be more open to medical care and treatment. Social & Family History - Family History Family Medical History: No Pertinent Family History - Tobacco Use Tobacco Use Status *Q: Never Tobacco User Second Hand Smoke Exposure: No - Caffeine Use Caffeine Use: Reports: Tea - Recreational Drug Use Recreational Drug Use: No - Living Situation & Occupation Living situation: Reports: Single Occupation: Unemployed ED ROS GENERAL - Review of Systems Review Of Systems: See Below Constitutional: Reports: No Symptoms HEENT: Reports: No Symptoms, Throat Pain (mild). Denies: Throat Swelling Respiratory: Reports: Shortness of Breath. Denies: Wheezing, Pleuritic Chest Pain, Cough Cardiovascular: Reports: Dyspnea on Exertion. Denies: Chest Pain GI/Abdominal: Reports: No Symptoms : Reports: No Symptoms Musculoskeletal: Reports: Other (painful R heel onset in past 24 hrs) Skin: Reports: No Symptoms Neurological: Reports: No Symptoms ED EXAM, GENERAL - Physical Exam Exam: See Below Exam Limited By: No Limitations General Appearance: Alert, WD/WN, No Apparent Distress Eye Exam: Bilateral Eye: Normal Inspection Ears: Normal External Exam, Normal Canal, Normal TMs, Hearing Loss Ear Exam: Bilateral Ear: Auricle Normal, Canal Normal Nose: Normal Inspection, No Blood, Other (slightly pale nasal mucosa without marked congestion) Throat/Mouth: Normal Inspection, Normal Lips, Normal Oropharynx, Normal Voice, No Airway Compromise Head: Atraumatic, Normocephalic Neck: Normal Inspection Respiratory/Chest: No Respiratory Distress, Lungs Clear, Normal Breath Sounds, No Accessory Muscle Use Cardiovascular: No Edema, Tachycardia, Irregularly Irregular. No: Regular Rate, Rhythm GI/Abdominal: Soft, Non-Tender Extremities: Normal Inspection, Normal Range of Motion, Non-Tender, No Pedal Edema, Other (R posterior heel is normal in appearance without redness or swelling). No: Pedal Edema, Increased Warmth, Redness Neurological: Alert, Oriented, CN II-XII Intact, Normal Cognition Psychiatric: Normal Affect, Normal Mood Skin Exam: Warm, Dry, Intact, Normal Color, No Rash Course - Vital Signs Last Recorded V/S: Last Vital Signs Temp 37.4 C 04/01/21 11:21 Pulse 124 H 04/01/21 11:42 Resp 17 04/01/21 11:21 BP 171/108 H 04/01/21 13:27 Pulse Ox 98 04/01/21 11:21 - Orders/Labs/Meds Orders: Active Orders 24 hr Category Date Time Status Cardiac Monitoring [RC] .As Directed Care 04/01/21 10:55 Active UA W/MICROSCOPIC [URIN] Stat Lab 04/01/21 11:24 Ordered Labs: Laboratory Tests 04/01/21 04/01/21 04/01/21 Range/Units 11:40 11:40 11:40 WBC 9.9 (4.5-11.0) K/uL RBC 4.44 (3.30-5.50) M/uL Hgb 12.3 (12.0-15.0) g/dL Hct 38.5 (36.0-48.0) % MCV 87 (80-98) fL MCH 28 (27-31) pg MCHC 32 (32-36) % Plt Count 203 (150-400) K/uL Sodium 143 (140-148) mmol/L Potassium 4.5 (3.6-5.2) mmol/L Chloride 106 (100-108) mmol/L Carbon Dioxide 24 (21-32) mmol/L Anion Gap 13.4 (5.0-14.0) mmol/L BUN 20 H (7-18) mg/dL Creatinine 1.6 H (0.6-1.0) mg/dL Est Cr Clr Drug Dosing 20.81 mL/min Estimated GFR (MDRD) 31 L (>60) Glucose 107 H (74-106) mg/dL Calcium 8.7 (8.5-10.1) mg/dL Troponin I 0.072 H* (0.000-0.056) ng/mL TSH, Ultra Sensitive 2.722 (0.358-3.740) uIU/mL Meds: Medications Discontinued Medications Generic Name Dose Route Start Last Admin Trade Name Freq PRN Reason Stop Dose Admin Carvedilol 18.75 mg 04/01/21 11:35 04/01/21 11:42 Carvedilol 12.5 Mg Tab PO 04/01/21 11:36 18.75 mg ONETIME ONE Administration Furosemide 40 mg 04/01/21 12:51 04/01/21 13:26 Furosemide 40 Mg/4 Ml Vial IVPUSH 04/01/21 12:52 40 mg ONETIME ONE Administration Lisinopril 10 mg 04/01/21 12:50 04/01/21 13:27 Lisinopril 10 Mg Tab PO 04/01/21 12:51 10 mg ONETIME ONE Administration - Re-Assessments/Exams Free Text/Narrative Re-Assessment/Exam: 04/01/21 13:37 Gradual improvement with our interventions in the ER. Departure - Departure Time of Disposition: 13:45 Disposition: Home, Self-Care 01 Condition: Fair Clinical Impression: Atrial fibrillation with RVR - Discharge Information *PRESCRIPTION DRUG MONITORING PROGRAM REVIEWED*: Not Applicable *COPY OF PRESCRIPTION DRUG MONITORING REPORT IN PATIENT OMARI: Not Applicable Instructions: Atrial Fibrillation, [id number] Referrals: PCP,None [Primary Care Provider] - Forms: ED Department Discharge Additional Instructions: 1. Ice the right heel a couple times a day and do some gentle calf stretches for your heel pain. 2. Take cetirizine 10 mg before bed for your post nasal drip that is likely the cause of your throat pain. 3. Increase your Coreg dose to 25 mg every 12 hrs, next dose at bedtime. Resume lisinopril next dose tomorrow. 4. Avoid salt or salty foods. Recheck with your provider later this week. Sepsis Event Note (ED) - Evaluation Sepsis Screening Result: No Definite Risk - Focused Exam Vital Signs: Vital Signs Temp Pulse Pulse Resp BP BP Pulse Ox 04/01/21 13:27 171/108 H 04/01/21 11:42 124 H 149/107 H 04/01/21 11:21 37.4 C 115 H 17 163/104 H 98 04/01/21 11:19 37.4 C 115 H 17 163/104 H 98 - My Orders Last 24 Hours: My Active Orders 04/01/21 10:55 Cardiac Monitoring [RC] .As Directed 04/01/21 11:24 UA W/MICROSCOPIC [URIN] Stat - Assessment/Plan Last 24 Hours: My Active Orders 04/01/21 10:55 Cardiac Monitoring [RC] .As Directed 04/01/21 11:24 UA W/MICROSCOPIC [URIN] Stat
[2021-04-01 11:43] VITALS: PULSE 124
[2021-04-01] MEDS ORDERED: Lisinopril 10 MG Tab PO ONE (12:50)
[2021-04-01] MEDS ORDERED: Furosemide 40 MG/4 ML VIAL IVPUSH ONE (12:51)
[2021-04-01 13:33] VITALS: BP 171/108
[2021-04-01] MEDS ORDERED: Cetirizine 10 MG Tab PO ONE (13:47)
== END 2021-04-01 14:04 | disposition home or self-care (01) ==
LOC: JP.ED 10:53
DX: I48.91 Unspecified atrial fibrillation (principal); I11.0 Hypertensive heart disease with heart failure; I50.9 Heart failure, unspecified; Z86.73 Personal history of transient ischemic attack (TIA), and cerebral infarction without residual deficits; Z79.82 Long term (current) use of aspirin; Z79.899 Other long term (current) drug therapy
CPT/HCPCS: 36415; 80048; 84443; 84484; 85027; 96374; 99284; A9270; J1940

== ENCOUNTER 2021-12-09 09:25 | Emergency (ER) | payer MEDICARE ==
[2021-12-09] MEDS ORDERED: Diltiazem 25 MG/5 ML SDV IVPUSH ONE (09:37)
[2021-12-09 09:47] VITALS: BP 141/91; PULSE 140
[2021-12-09] MEDS ORDERED: Diltiazem IR 30 MG Tab PO ONE (09:55)
== END 2021-12-09 12:35 | disposition home or self-care (01) ==
LOC: JP.ED 09:25
DX: I48.91 Unspecified atrial fibrillation (principal); E78.00 Pure hypercholesterolemia, unspecified; I11.0 Hypertensive heart disease with heart failure; I50.9 Heart failure, unspecified; Z86.73 Personal history of transient ischemic attack (TIA), and cerebral infarction without residual deficits; Z79.82 Long term (current) use of aspirin; Z79.899 Other long term (current) drug therapy
CPT/HCPCS: 36415; 80048; 81001; 84484; 85027; 93005; 93010; 96374; 99284; 99285; A9270; J3490

== ENCOUNTER 2023-02-06 11:34 | Emergency (ER) | payer MEDICARE ==
[2023-02-06 11:58] VITALS: BP 176/119; PULSE 109
== END 2023-02-06 13:00 | disposition home or self-care (01) ==
LOC: JP.ED 11:34
DX: K04.7 Periapical abscess without sinus (principal); K02.9 Dental caries, unspecified; I48.91 Unspecified atrial fibrillation; E78.00 Pure hypercholesterolemia, unspecified; I11.0 Hypertensive heart disease with heart failure; I50.9 Heart failure, unspecified; Z86.73 Personal history of transient ischemic attack (TIA), and cerebral infarction without residual deficits; Z79.82 Long term (current) use of aspirin; Z79.899 Other long term (current) drug therapy; Z87.891 Personal history of nicotine dependence
CPT/HCPCS: 99282